=== PATIENT | female | born 1970 | race Caucasian/White ===

== ENCOUNTER 2017-01-15 11:02 | Emergency (ER) | payer OTHER ==
[2017-01-15 11:07] VITALS: TEMP 97.8; BMI 21.0
--- NOTE | 2017-01-15 11:47 | PDOC ---
History of Present Illness - General History Source: Patient, Family Exam Limitations: No Limitations - History of Present Illness Initial Comments: 01/15/17 12:25 The patient is a 46 year old female, with a significant past medical history of gastritis, who presents to the emergency department with abdominal pain, nausea and vomiting. She states that her abdominal pain is sharp ranging from mild to moderate, without radiation or modifying factors. She also states that the pain usually wakes her up every morning for a few hours and the pain resolves on her own. She notes that she has been passing gas. She also notes that she has been taking Omeprazole. She states that she has lost 7 pounds during the past month. She was last in the ED on 04/08/2017 for the same symptoms, was given Zofran, morphine, pepcid and normal saline. At the time she had a CT abdomen/pelvis which revealed a right ovarian cyst. The patient was discharged after improvement of symptoms. Since then she has followed up with a GI specialist who have done both an endoscopy and colonoscopy that was within normal limits. She notes that she has not had true relief since last year. The patient denies chest pain, shortness of breath, headache and dizziness. Denies fever, chills, nausea, vomit, diarrhea and constipation. Denies dysuria, frequency, urgency and hematuria. Allergies: None Past surgical history: Spinal Fusion Social history: Marijuana use. Former smoker. No alcohol use PCP - Dr. Duran Snyder <Shady Rudolph - Last Filed: 01/15/17 12:24> - General History Source: Patient Exam Limitations: No Limitations <Gisselle Hernandez - Last Filed: 01/15/17 14:34> - General Chief Complaint: Pain Stated Complaint: ABD PAIN, Time Seen by Provider: 01/15/17 11:25 Past History <Shady Rudolph - Last Filed: 01/15/17 12:24> - Past Medical History Kidney Stones: No Liver Disease: No Other medical history: none - Surgical History Neurologic Surgery: Yes (spine) Orthopedic Surgery: Yes (spinal fusion ) - Immunization History Immunization Up to Date: Yes - Psycho/Social/Smoking Cessation Hx Anxiety: Yes Suicidal Ideation: No Smoking History: Never smoked Have you smoked in the past 12 months: Yes Number of Cigarettes Smoked Daily: 2 Information on smoking cessation initiated: No Hx Alcohol Use: No Drug/Substance Use Hx: No Substance Use Type: None <Gisselle Hernandez - Last Filed: 01/15/17 14:34> - Past Medical History Allergies/Adverse Reactions: Allergies Allergy/AdvReac Type Severity Reaction Status Date / Time No Known Allergies Allergy Verified 01/15/17 11:04 Home Medications: Ambulatory Orders Dicyclomine HCl [Bentyl] 10 mg PO TID PRN #30 capsule 01/15/17 Famotidine [Pepcid] 20 mg PO DAILY #30 tablet 01/15/17 Review of Systems - Review of Systems Able to Perform ROS?: Yes Comments:: 01/15/17 12:25 GENERAL/CONSTITUTIONAL: No fever or chills. No weakness. HEAD, EYES, EARS, NOSE AND THROAT: No change in vision. No ear pain or discharge. No sore throat. CARDIOVASCULAR: No chest pain or shortness of breath RESPIRATORY: No cough, wheezing, or hemoptysis. GASTROINTESTINAL: +Abdominal pain, nausea, vomiting. No diarrhea or constipation. GENITOURINARY: No dysuria, frequency, or change in urination. MUSCULOSKELETAL: No joint or muscle swelling or pain. No neck or back pain. SKIN: No rash NEUROLOGIC: No headache, vertigo, loss of consciousness, or change in strength/ sensation. ENDOCRINE: No increased thirst. No abnormal weight change HEMATOLOGIC/LYMPHATIC: No anemia, easy bleeding, or history of blood clots. ALLERGIC/IMMUNOLOGIC: No hives or skin allergy. <Shady Rudolph - Last Filed: 01/15/17 12:24> *Physical Exam - Vital Signs Last Vital Signs Temp Pulse Resp BP Pulse Ox 97.8 F 69 18 149/84 100 01/15/17 11:05 01/15/17 11:05 01/15/17 11:05 01/15/17 11:05 01/15/17 11:05 - Physical Exam Comments: 01/15/17 12:25 GENERAL: Awake, alert, and fully oriented, in no acute distress HEAD: No signs of trauma, normocephalic, atraumatic EYES: PERRLA, EOMI, sclera anicteric, conjunctiva clear ENT: Auricles normal inspection, hearing grossly normal, nares patent, oropharynx clear without exudates. Moist mucosa NECK: Normal ROM, supple, no lymphadenopathy, JVD, or masses LUNGS: No distress, speaks full sentences, clear to auscultation bilaterally HEART: Regular rate and rhythm, normal S1 and S2, no murmurs, rubs or gallops, peripheral pulses normal and equal bilaterally. ABDOMEN: +Epigastric tenderness. Soft, normoactive bowel sounds. No guarding, no rebound. No masses EXTREMITIES: Normal inspection, Normal range of motion, no edema. No clubbing or cyanosis. NEUROLOGICAL: Cranial nerves II through XII grossly intact. Normal speech, normal gait, no focal sensorimotor deficits SKIN: Warm, Dry, normal turgor, no rashes or lesions noted. <Shady Rudolph - Last Filed: 01/15/17 12:24> - Vital Signs Last Vital Signs Temp Pulse Resp BP Pulse Ox 97.8 F 69 18 149/84 100 01/15/17 11:05 01/15/17 11:05 01/15/17 11:05 01/15/17 11:05 01/15/17 11:05 <Gisselle Hernandez - Last Filed: 01/15/17 14:34> ED Treatment Course - LABORATORY CBC & Chemistry Diagram: 01/15/17 11:55 01/15/17 11:55 <Gisselle Hernandez - Last Filed: 01/15/17 14:34> Medical Decision Making - Medical Decision Making 01/15/17 11:47 A portion of this note was documented by scribe services under my direction. I have reviewed the details of the note, within reason, and agree with the documentation with the following case summary and management plan written by me. Nursing documentation reviewed and incorporated into medical decision making This patient is a 46-year-old female with a history of gastritis who presents emergency department with a complaint of abdominal pain. Patient states the pain wakes her up at approximately 4 AM every morning, described as sharp/stabbing, 10:30 Patient notes that her pain actually improves over the course of the morning. She has been unable to eat due to her symptoms. He denies fevers or chills although nose intermittently that she is very hot and sweaty. No recent travel. No ill contacts. Patient's father has similar symptoms. Patient was seen by gastritis who did an endoscopy and stated was normal and that she might need to get used to the pain 01/15/17 12:01 Others' Prescriptions Patient Name: Carole Aguilar Date: 1970 Address: [facility] [address] [place] [address] Sex: Female Rx Written Rx Dispensed Drug Quantity Days Supply Prescriber Name 12/11/2016 12/17/2016 oxycodone-acetaminophen 10-325 mg tab 60 30 Abraham Hill MD 11/12/2016 11/12/2016 oxycodone-acetaminophen 10-325 mg tab 60 30 ModAbraham banks MD 10/15/2016 10/15/2016 oxycodone-acetaminophen 10-325 mg tab 60 30 ModuguAbraham MD 10/15/2016 10/15/2016 clonazepam 1 mg tablet 30 30 ModuguAbraham MD 06/18/2016 06/21/2016 oxycodone hcl 20 mg tablet 30 15 Adissi, Priscilla GENER[employer] INTERNIST AND PHYSICIAN LEADER 05/14/2016 05/18/2016 diazepam 10 mg tablet 60 30 Adissi, Priscilla GENERAL INTERNIST AND PHYSICIAN LEADER 05/14/2016 05/18/2016 oxycodone-acetaminophen 10-325 mg tab 150 25 Adissi, Priscilla GENERAL INTERNIST AND PHYSICIAN LEADER 05/14/2016 05/18/2016 oxycodone hcl 20 mg tablet 60 30 Adissi, Priscilla GENERAL INTERNIST AND PHYSICIAN LEADER 04/09/2016 04/09/2016 oxycodone hcl 20 mg tablet 60 30 Adissi, Priscilla GENERAL INTERNIST AND PHYSICIAN LEADER 04/09/2016 04/09/2016 oxycodone-acetaminophen 10-325 150 30 Adissi, Priscilla GENERAL INTERNIST AND PHYSICIAN LEADER 04/09/2016 04/09/2016 diazepam 10 mg tablet 60 30 Adissi, Priscilla GENERAL INTERNIST AND PHYSICIAN LEADER 01/25/2016 02/07/2016 oxycodone hcl 20 mg tablet 60 30 Adissi, Priscilla GENERAL INTERNIST AND PHYSICIAN LEADER 01/25/2016 01/31/2016 oxycodone-acetaminophen 10-325 150 20 Adissi, Priscilla GENERAL INTERNIST AND PHYSICIAN LEADER 01/25/2016 01/29/2016 diazepam 10 mg tablet 60 30 Adissi, Priscilla GENERAL INTERNIST AND PHYSICIAN LEADER 01/27/2016 01/27/2016 acetaminophen-cod #3 tablet 20 3 González Black 01/15/17 14:28 Laboratory Tests 01/15/17 01/15/17 01/15/17 11:55 11:55 11:55 WBC 11.4 H Hgb 14.1 Hct 42.1 Plt Count 254 Neutrophils % 65.2 Lymphocytes % 26.7 D BUN 6 L D Creatinine 0.8 Random Glucose 99 Urine Blood Negative Urine Nitrite Negative Ur Leukocyte Esterase Negative Will NOT image Pt states she would like to go home Clinical Impression: gastritis <Gisselle Hernandez - Last Filed: 01/15/17 14:34> *DC/Admit/Observation/Transfer - Attestations Scribe Attestion: 01/15/17 12:25 Documentation prepared by Shady Rudolph, acting as medical office scheduler for Gisselle Hernandez MD <Shady Rudolph - Last Filed: 01/15/17 12:24> - Discharge Dispostion Admit: No <Gisselle Hernandez - Last Filed: 01/15/17 14:34> Diagnosis at time of Disposition: Abdominal pain Qualifiers: Abdominal location: epigastric Qualified Code(s): R10.13 - Epigastric pain Gastritis Qualifiers: Gastritis type: other gastritis Chronicity: chronic Gastritis bleeding: without bleeding Qualified Code(s): K29.50 - Unspecified chronic gastritis without bleeding - Discharge Dispostion Disposition: HOME Condition at time of disposition: Improved - Prescriptions Prescriptions: Dicyclomine HCl [Bentyl] 10 mg PO TID PRN #30 capsule PRN Reason: abdominal pain Famotidine [Pepcid] 20 mg PO DAILY #30 tablet - Referrals Referrals: Duran Snyder MD [Primary Care Provider] - Lg Hall MD [Staff Physician] - - Patient Instructions Printed Discharge Instructions: DI for Gastritis, Tucker Diet, DI for Abdominal Pain-Adult Additional Instructions: Carole Thank you for coming in to the ER today Please take medications as prescribed Please be sure to follow up with your PMD on Saturday Return to the ER for any other concerns or complaints
[2017-01-15] MEDS ORDERED: ONDANSETRON 4 MG/2 ML VIAL IVPB ONE (11:50)
[2017-01-15] MEDS ORDERED: FAMOTIDINE 20 MG/50 ML IVPB 50 ML IVPB ONE ×2 (11:50→12:50)
[2017-01-15] MEDS ORDERED: SODIUM CHLORIDE 1,000 ML IV STA (11:50)
[2017-01-15] MEDS ORDERED: morphine CARPU-JECT 4 MG/1 ML DISP.SYRIN IVPUSH ONE (12:15)
[2017-01-15] MEDS ORDERED: DICYCLOMINE HCL 10 MG CAPSULE PO ONE (12:15)
[2017-01-15] MEDS ORDERED: morphine CARPU-JECT 4 MG/1 ML DISP.SYRIN ONE (12:50)
[2017-01-15] MEDS ORDERED: ONDANSETRON 4 MG/2 ML VIAL ONE (12:50)
[2017-01-15] MEDS ORDERED: DICYCLOMINE HCL 10 MG CAPSULE ONE (12:50)
[2017-01-15 14:01] LABS: BASOPHIL 0.6 % (0-2.0); EOSINOPHIL 0.4 % (0-4.5); MCH 31.4 pg (25.7-33.7); MCHC 33.4 g/dl (32.0-36.0); MEAN CELL VOLUME 93.9 fl (80-96); MEAN PLT VOLUME 10.2 fl (7.5-11.1); NEUTROPHILS 65.2 % (42.8-82.8); PLATELET COUNT 254 K/MM3 (134-434); RDW 12.8 % (11.6-15.6); WHITE BLOOD COUNT 11.4 K/mm3 (4.0-10.0)
[2017-01-15 14:10] LABS: URINE APPEARANCE CLEAR; URINE BILIRUBIN NEGATIVE (NEGATIVE); URINE BLOOD NEGATIVE (NEGATIVE); URINE COLOR COLORLESS; URINE GLUCOSE (UA) NEGATIVE (NEGATIVE); URINE KETONE NEGATIVE (NEGATIVE); URINE LEUK ESTERASE NEGATIVE (NEGATIVE); URINE NITRITE NEGATIVE (NEGATIVE); URINE PROTEIN NEGATIVE (NEGATIVE); URINE UROBILINOGEN NEGATIVE E.U./dl (0.2-1.0)
[2017-01-15 14:14] LABS: ALBUMIN 4.4 g/dl (3.4-5.0); ALK PHOS 81 U/L (45-117); AMYLASE 43 U/L (25-115); ANION GAP 9 (8-16); BILIRUBIN,TOTAL 0.4 mg/dL (0.2-1.0); CALCIUM 9.2 mg/dL (8.5-10.1); CO2 27 mmol/L (21-32); CREATININE 0.8 mg/dL (0.55-1.02); GLUCOSE,RANDOM 99 mg/dL (74-106); SGOT/AST 16 U/L (15-37); SGPT/ALT 20 U/L (12-78); TOT PROT 7.7 g/dl (6.4-8.2)
[2017-01-15 14:44] VITALS: BP 136/74; PULSE 73
== END 2017-01-15 14:44 | disposition home or self-care (01) ==
LOC: JER 11:02
PROC: 3E033GC Introduction of Other Therapeutic Substance into Peripheral Vein, Percutaneous Approach (ICD-10-PCS; principal; 2017-01-15)
PROC: 3E033NZ Introduction of Analgesics, Hypnotics, Sedatives into Peripheral Vein, Percutaneous Approach (ICD-10-PCS; 2017-01-15)
DX: K29.50 Unspecified chronic gastritis without bleeding (principal)
CPT/HCPCS: 36415; 80053; 81003; 82150; 83690; 85025; 87086; 96365; 96375; 99284-25

== ENCOUNTER 2017-02-06 03:24 | Inpatient (IN) | payer OTHER ==
[2017-02-06] MEDS ORDERED: ALBUTEROL SO4 2.5/IPRATROPIUM 0.5 INH SOL 3 ML VIAL.NEB. NEB STA ×2 (03:45→04:29)
[2017-02-06] MEDS ORDERED: methylPREDNISolone NA SUCC 125 MG/2 ML VIAL IVPB ONE (03:45)
--- NOTE | 2017-02-06 03:45 | PDOC ---
History of Present Illness - General History Source: Patient <Shady Hurtado - Last Filed: 02/06/17 05:14> - General History Source: Patient Exam Limitations: No Limitations - History of Present Illness Initial Comments: 02/06/17 03:55 The patient is a 46 year old female with no significant past medical history who presents to the ED with right-sided chest pain few hours prior to arrival. Patient reports she was in her usual state of health when she was awoken by a sudden onset of nonradiating right-sided chest pain around 1am. She described chest pain as pressure-like sensation, squeezing, and stabbing in nature that she rates a 10/10 with associated SOB. Denies diaphoresis, lightheadedness, jaw pain, shoulder pain, arm pain, leg swelling, nausea, or vomiting. She admits to smoking half pack cigarettes per day and her last cigarette was earlier yesterday morning. Patient also states she has chest pain upon deep inspiration. The patient denies fever, chills, cough, abdominal pain, and diarrhea. Allergies: NKDA Social History: Denies alcohol or drug use. Current smoker (half ppd) Past Surgical History: Spinal fusion PCP: Dr. Duran Snyder <Mandie Whalen - Last Filed: 02/06/17 05:57> - General Chief Complaint: Chest Pain Stated Complaint: CHEST PAIN Time Seen by Provider: 02/06/17 03:45 Past History - Past Medical History Kidney Stones: No Liver Disease: No Psychiatric Problems: Yes - Surgical History Neurologic Surgery: Yes (spine) Orthopedic Surgery: Yes (spinal fusion ) - Immunization History Immunization Up to Date: Yes - Psycho/Social/Smoking Cessation Hx Anxiety: Yes Suicidal Ideation: No Smoking History: Unknown if ever smoked Have you smoked in the past 12 months: Yes Number of Cigarettes Smoked Daily: 2 Information on smoking cessation initiated: No Hx Alcohol Use: No Drug/Substance Use Hx: No Substance Use Type: None <Shady Hurtado - Last Filed: 02/06/17 05:14> <Mandie Whalen - Last Filed: 02/06/17 05:57> - Past Medical History Allergies/Adverse Reactions: Allergies Allergy/AdvReac Type Severity Reaction Status Date / Time No Known Allergies Allergy Verified 02/06/17 03:33 Home Medications: Ambulatory Orders Baclofen 10 mg PO BID 02/06/17 Clonazepam [Klonopin] 1 mg PO DAILY PRN 02/06/17 Oxycodone HCl/Acetaminophen [Percocet 5-325 mg Tablet] 1 tab PO Q4H PRN Sertraline HCl [Zoloft] 25 mg PO DAILY 02/06/17 Review of Systems - Review of Systems Able to Perform ROS?: Yes Comments:: 02/06/17 03:55 CONSTITUTIONAL: Absent: fever, chills, diaphoresis, generalized weakness, malaise, loss of appetite HEENT: Absent: rhinorrhea, nasal congestion, throat pain, throat swelling, difficulty swallowing, mouth swelling, ear pain, eye pain, visual Changes CARDIOVASCULAR: +right-sided chest pain Absent: syncope, palpitations, irregular heart rate, lightheadedness, peripheral edema RESPIRATORY: +SOB Absent: cough, dyspnea with exertion, orthopnea, wheezing, stridor, hemoptysis GASTROINTESTINAL: Absent: abdominal pain, abdominal distension, nausea, vomiting, diarrhea, constipation, melena, hematochezia GENITOURINARY: Absent: dysuria, frequency, urgency, hesitancy, hematuria, flank pain, genital pain MUSCULOSKELETAL: Absent: myalgia, arthralgia, joint swelling SKIN: Absent: rash, itching, pallor NEUROLOGIC: Absent: headache, focal weakness or paresthesias, dizziness, unsteady gait, seizure, mental status changes, bladder or bowel incontinence PSYCHIATRIC: Absent: anxiety, depression, suicidal or homicidal ideation, hallucinations. <Mandie Whalen - Last Filed: 02/06/17 05:57> *Physical Exam - Vital Signs Last Vital Signs Temp Pulse Resp BP Pulse Ox 98.0 F 72 14 107/61 100 02/06/17 03:33 02/06/17 03:33 02/06/17 03:33 02/06/17 03:33 02/06/17 03:33 <Shady Hurtado - Last Filed: 02/06/17 05:14> - Vital Signs Last Vital Signs Temp Pulse Resp BP Pulse Ox 98.0 F 72 14 107/61 100 02/06/17 03:33 02/06/17 03:33 02/06/17 03:33 02/06/17 03:33 02/06/17 03:33 - Physical Exam Comments: 02/06/17 03:55 GENERAL: Well developed, well nourished. Awake and alert. No acute distress. HEENT: Normocephalic, atraumatic. PERRLA, EOMI. No conjunctival pallor. Sclera are non- icteric. Moist mucous membranes. Oropharynx is clear. NECK: Supple. Full ROM. No JVD. Carotid pulses 2+ and symmetric, without bruits. No thyromegaly. No lymphadenopathy. CARDIOVASCULAR: Regular rate and rhythm. No murmurs, rubs, or gallops. Distal pulses are 2+ and symmetric. PULMONARY: Mild respiratory distress. Decreased breath sounds. No conversational dyspnea. Scattered wheezing predominantly on right side. No supraclavicular retraction. No rales or rhonchi. ABDOMINAL: Soft. Non-tender. Non-distended. No rebound or guarding. No organomegaly. Normoactive bowel sounds. MUSCULOSKELETAL Normal range of motion at all joints. No bony deformities or tenderness. No CVA tenderness. EXTREMITIES: No cyanosis. No clubbing. No edema. No calf tenderness. SKIN: Warm and dry. Normal capillary refill. No rashes. No jaundice. NEUROLOGICAL: Alert, awake, appropriate. Cranial nerves 2-12 intact. No deficits to light touch and temperature in face, upper extremities and lower extremities. No motor deficits in the in face, upper extremities and lower extremities. Normoreflexic in the upper and lower extremities. Normal speech. PSYCHIATRIC: Cooperative. Good eye contact. Appropriate mood and affect. <Mandie Whalen - Last Filed: 02/06/17 05:57> Heart Score/ECG Review - ECG Impressions Comment:: 02/06/17 03:55 Sinus bradycardia @56bpm Possible left atrial enlargement Rightward axis Anterior infarct, age undetermined Abnormal ECG <Mandie Whalen - Last Filed: 02/06/17 05:57> ED Treatment Course - LABORATORY CBC & Chemistry Diagram: 02/06/17 03:45 02/06/17 03:45 <Shady Hurtado - Last Filed: 02/06/17 05:14> - LABORATORY CBC & Chemistry Diagram: 02/06/17 03:45 02/06/17 03:45 - RADIOLOGY Radiograph Interpretation: 02/06/17 03:[address] Hurtado's impression: Increased markings <Mandie Whalen - Last Filed: 02/06/17 05:57> Medical Decision Making - Medical Decision Making 02/06/17 05:14 Dr. Hurtado: The scribe's documentation has been prepared under my direction and personally reviewed by me in its entirery. I confirm that the note above accurately reflects all work, treatment, procedures, and medical decision making performed by me. Pt feels slightly better, however still having slight pain. Pt probably having new onset COPD, however pt has never been evaluated by pulmonology. Will admit to med surg. <Shady Hurtado - Last Filed: 02/06/17 05:14> - Medical Decision Making 02/06/17 05:[address] Duran Snyder (via answering service) at 5:37 Awaiting call back 02/06/17 05:56 Second call placed to Dr. Snyder (via answering service) at 5:56 and patient's case was discussed. <Mandie Whalen - Last Filed: 02/06/17 05:57> *DC/Admit/Observation/Transfer - Discharge Dispostion Admit: Yes <Shady Hurtado - Last Filed: 02/06/17 05:14> - Attestations Scribe Attestion: 02/06/17 03:56 Documentation prepared by Mandie Whalen, acting as medical scientist for Shady Hurtado MD <Mandie Whalen - Last Filed: 02/06/17 05:57> Diagnosis at time of Disposition: COPD with acute exacerbation Dyspnea Qualifiers: Dyspnea type: shortness of breath Qualified Code(s): R06.02 - Shortness of breath - Referrals Referrals: Duran Snyder MD [Primary Care Provider] -
[2017-02-06] MEDS ORDERED: ASPIRIN 81 MG CHEWABLE TABLETS PO ONE (03:46)
[2017-02-06 03:56] LABS: BASOPHIL 0.7 % (0-2.0); EOSINOPHIL 2.9 % (0-4.5); MCH 31.9 pg (25.7-33.7); MCHC 34.1 g/dl (32.0-36.0); MEAN CELL VOLUME 93.3 fl (80-96); MEAN PLT VOLUME 9.7 fl (7.5-11.1); NEUTROPHILS 46.9 % (42.8-82.8); PLATELET COUNT 210 K/MM3 (134-434); RDW 13.1 % (11.6-15.6); WHITE BLOOD COUNT 8.1 K/mm3 (4.0-10.0)
[2017-02-06] MEDS ORDERED: ASPIRIN 81 MG CHEWABLE TABLETS ONE (04:16)
[2017-02-06 04:20] LABS: ALBUMIN 3.7 g/dl (3.4-5.0); ANION GAP 9 (8-16); BILIRUBIN,TOTAL 0.3 mg/dL (0.2-1.0); CALCIUM 8.4 mg/dL (8.5-10.1); CO2 26 mmol/L (21-32); CREATININE 0.9 mg/dL (0.55-1.02); GLUCOSE,RANDOM 96 mg/dL (74-106); SGOT/AST 17 U/L (15-37); SGPT/ALT 19 U/L (12-78); TOT PROT 6.8 g/dl (6.4-8.2)
[2017-02-06 04:22] LABS: ALK PHOS 74 U/L (45-117); TROPONIN I < 0.02 ng/ml (0.00-0.05)
[2017-02-06] MEDS ORDERED: MAGNESIUM SULF 50% (8.12 MEQ/2 ML-1 GM VIAL) IVPB ONE (04:26)
[2017-02-06 04:27] LABS: INR 1.01 (0.82-1.09)
[2017-02-06] MEDS ORDERED: MAGNESIUM SULF 50% (8.12 MEQ/2 ML-1 GM VIAL) ONE (04:29)
[2017-02-06 04:30] LABS: D-DIMER < 200 ng/ml (<200-235)
[2017-02-06] MEDS ORDERED: ONDANSETRON *ODT* 4 MG TABLET SL PRN (08:03)
[2017-02-06] MEDS ORDERED: ACETAMINOPHEN 325 MG TABLET (FP) PO PRN (08:03)
[2017-02-06] MEDS ORDERED: clonazePAM 0.5 MG TABLET PO PRN (08:06)
[2017-02-06 08:54] LABS: CHOLESTEROL 170 mg/dL (50-200); LDL CHOLESTEROL (ONLY SJRH) 105 mg/dL (5-100)
[2017-02-06 09:29] VITALS: BMI 22.2
[2017-02-06] MEDS: SERTRALINE HCL 25 MG TABLET (FP) PO SCH (09:38)
[2017-02-06] MEDS: oxyCODONE HCL 5 MG TABLET PO PRN ×2 (09:38→17:04)
[2017-02-06] MEDS: BACLOFEN 10 MG TABLET (FP) PO SCH ×2 (09:38→21:33)
[2017-02-06] MEDS: ASPIRIN COATED 81 MG TABLET.EC PO SCH (09:38)
--- NOTE | 2017-02-06 09:49 | CONSULT ---
Consultation: REQUESTING PROVIDER: Dr. Duran Hoff CONSULT REQUEST: We have been asked to medically evaluate this patient for COPD HISTORY OF PRESENT ILLNESS: 46 yo F with significant PMHx of tobacco use and spinal disc herniation (s/p fusion and corrective surgery) presented to ED 02/06/17 complaining of CP. She states that at 1am she noticed a sharp pain on her right chest that radiated to her back. She describes 10/10 radiating intermittent right sided CP made worse by deep inspiration and no alleviating factors. Pain was accompanied by SOB and chills but no fevers. Denied diaphoresis, relation to activity, nausea or vomiting. Earlier that day she was eating cereal and chocked and coughed uncontrollably for a few minutes.Of note her daughter was seen in ED 2 weeks ago and diagnosed with PNA and discharged with antibiotics. Also other members of her family have been sick with cold like symptoms.She did receive flu vaccine this year in 2015. In ER she received Solumedrol and Duoneb treatments with improvement of SOB but pain persist. She mentions that as a child she had bronchitis and that 3/6 children at home have asthma treated with inhalers. At this time denies SOB, MARES, diaphoresis, fever or chills. Allergies: NKDA Social History: Denies alcohol or drug use. 15 pack year history. Currently trying to quit smokes 1-2 cigs dialy. Past Surgical History: Spinal fusion(2013), Corrective spinal surgery with pinnig(2014), hemorrhoid, tubal ligation, tonsillectomy Family history: Mother - ovarian Ca. Father- Heart problems? Children- 3/6 asthma REVIEW OF SYSTEMS: CONSTITUTIONAL: Absent: fever, chills, diaphoresis, generalized weakness, malaise, loss of appetite, weight change HEENT: Absent: rhinorrhea, nasal congestion, throat pain, throat swelling, difficulty swallowing, mouth swelling, ear pain, eye pain, visual changes CARDIOVASCULAR:(+) chest pain Absent: , syncope, palpitations, irregular heart rate, lightheadedness, peripheral edema RESPIRATORY: Absent: cough, shortness of breath, dyspnea with exertion, orthopnea, wheezing, stridor, hemoptysis GASTROINTESTINAL: Absent: abdominal pain, abdominal distension, nausea, vomiting, diarrhea, constipation, melena, hematochezia GENITOURINARY: Absent: dysuria, frequency, urgency, hesitancy, hematuria, flank pain, genital pain MUSCULOSKELETAL: Absent: myalgia, arthralgia, joint swelling, back pain, neck pain SKIN: Absent: rash, itching, pallor HEMATOLOGIC/IMMUNOLOGIC: Absent: easy bleeding, easy bruising, lymphadenopathy, frequent infections ENDOCRINE: Absent: unexplained weight gain, unexplained weight loss, heat intolerance, cold intolerance NEUROLOGIC: (+) paresthesias of R side Absent: headache, focal weakness or, dizziness, unsteady gait, seizure, mental status changes, bladder or bowel incontinence PSYCHIATRIC: (+)anxiety, depression Absent: , suicidal or homicidal ideation, hallucinations. PHYSICAL EXAMINATION GENERAL: AAO x3, NAD HEAD:NC/AT EYES: PERRLA, EOMI, sclera anicteric, conjunctiva clear. No lid lag. EARS, NOSE, THROAT: Ears normal, nares patent, oropharynx clear without exudates. Moist mucous membranes. NECK: Decreased range of motion, supple without lymphadenopathy, JVD, or masses. thyromegally. 3cm Cervical incision fr LUNGS: Breath sounds equal, clear to auscultation bilaterally. No wheezes, and no crackles. No accessory muscle use. HEART: Regular rate and rhythm, normal S1 and S2 without murmur, rub or gallop. ABDOMEN: Soft, NT/ND, normoactive bowel sounds, no guarding, no rebound, no masses. No hepatomegaly or splenomegaly. MUSCULOSKELETAL:Point tenderness on palpation of right posterior intercostal space. No bony deformities .No CVA tenderness. UPPER EXTREMITIES: 2+ pulses, warm, well-perfused. No cyanosis. No clubbing. No peripheral edema. LOWER EXTREMITIES: 2+ pulses, warm, well-perfused. No calf tenderness. No peripheral edema. NEUROLOGICAL: Cranial nerves II-XII grossly intact. Normal speech. gait not observed. PSYCHIATRIC: Cooperative. Good eye contact. Appropriate mood and affect. SKIN: Warm, dry, normal turgor, no rashes or lesions noted. Active Medications Generic Name Dose Route Start Last Admin Trade Name Freq PRN Reason Stop Dose Admin Acetaminophen 650 mg 02/06/17 08:03 Tylenol - PO Q6H PRN FEVER OR PAIN Albuterol/Ipratropium 1 amp 02/06/17 08:03 Duoneb - NEB Q6H PRN SHORTNESS OF BREATH Aspirin 81 mg 02/06/17 10:00 02/06/17 09:38 Ecotrin - PO 81 mg DAILY ALANIS Administration Baclofen 10 mg 02/06/17 10:00 02/06/17 09:38 Lioresal - PO 10 mg BID ALANIS Administration Clonazepam 1 mg 02/06/17 08:06 Klonopin - PO BID PRN ANXIETY Methylprednisolone Sodium Succinate 40 mg 02/06/17 10:00 02/06/17 09:38 Solu-Medrol - IVPB 40 mg Q8H-IV ALANIS Administration Ondansetron HCl 4 mg 02/06/17 08:03 Zofran Odt - SL Q6H PRN NAUSEA AND/OR VOMITING Oxycodone HCl 5 mg 02/06/17 08:03 02/06/17 09:38 Roxicodone - PO 5 mg Q6H PRN Administration PAIN Sertraline HCl 25 mg 02/06/17 10:00 02/06/17 09:38 Zoloft - PO 25 mg DAILY ALANIS Administration EKG: NSR rate of 56, right axis deviation Imaging: * CXR- Normal chest xray, no acute pathology. ASSESSMENT/PLAN: 46 yo F with significant PMHx of tobacco use and spinal disc herniation (s/p fusion and corrective surgery) admitted to for Acute exacerbation of COPD. Dispo: We will continue to follow the patient. Thank you for this consultative opportunity. Problem List - Problems (1) COPD with acute exacerbation Assessment/Plan: * Pain more likely acute intercostal muscle strain from uncontrolled coughing earlier that day ,given its reproducibility on palpation. * May consider trial of NSAIDS * NO fever or Leukocytosis and SpO2 99% on RA since admission * CXR was normal with no acute pathology * COPD less likely * smoking cessation counseled * can discontinue Solumedrol 40mg IV Q8H and Duonebs QID * Wells -2 and D-Dimer WNL= Low pretest prob. of DVT/PE * Consider early discharge. Code(s): J44.1 - CHRONIC OBSTRUCTIVE PULMONARY DISEASE W (ACUTE) EXACERBATION Visit type - Emergency Visit Emergency Visit: Yes ED Registration Date: 02/06/17 Care time: The patient presented to the Emergency Department on the above date and was hospitalized for further evaluation of their emergent condition. - New Patient This patient is new to me today: Yes Date on this admission: 02/06/17 - Critical Care Critical Care patient: No
[2017-02-06] MEDS ORDERED: methylPREDNISolone NA SUCC 40 MG/1 ML VIAL IVPB SCH (10:00)
--- NOTE | 2017-02-06 11:51 | HP ---
Admitting History and Physical - Primary Care Physician PCP: Duran Snyder - Admission Chief Complaint: CHEST PAIN/DYSPNEA History of Present Illness: he patient is a 46 year old female with no significant past medical history who presents to the ED with right-sided chest pain few hours prior to arrival. Patient reports she was in her usual state of health when she was awoken by a sudden onset of nonradiating right-sided chest pain around 1am. She described chest pain as pressure-like sensation, squeezing, and stabbing in nature that she rates a 10/10 with associated SOB. Denies diaphoresis, lightheadedness, jaw pain, shoulder pain, arm pain, leg swelling, nausea, or vomiting. She admits to smoking half pack cigarettes per day and her last cigarette was earlier yesterday morning. Patient also states she has chest pain upon deep inspiration. The patient denies fever, chills, cough, abdominal pain, and diarrhea. Limitations to Obtaining History: No Limitations - Past Medical History Pulmonary: Yes: Asthma, COPD ...LMP: 01/16/17 - Smoking History Smoking history: Current every day smoker Have you smoked in the past 12 months: Yes Aproximately how many cigarettes per day: 2 - Alcohol/Substance Use Hx Alcohol Use: No Home Medications - Allergies Allergies/Adverse Reactions: Allergies Allergy/AdvReac Type Severity Reaction Status Date / Time No Known Allergies Allergy Verified 02/06/17 03:33 - Home Medications Home Medications: Ambulatory Orders Baclofen 10 mg PO BID 02/06/17 Clonazepam [Klonopin] 1 mg PO DAILY PRN 02/06/17 Oxycodone HCl/Acetaminophen [Percocet 5-325 mg Tablet] 1 tab PO Q4H PRN Sertraline HCl [Zoloft] 25 mg PO DAILY 02/06/17 Review of Systems - Review of Systems Constitutional: reports: Weakness Eyes: reports: No Symptoms HENT: reports: No Symptoms Neck: reports: No Symptoms Cardiovascular: reports: Chest Pain Respiratory: reports: Cough, SOB, SOB on Exertion Gastrointestinal: reports: No Symptoms Genitourinary: reports: No Symptoms Breasts: reports: No Symptoms Reported Musculoskeletal: reports: No Symptoms Integumentary: reports: No Symptoms Neurological: reports: No Symptoms Endocrine: reports: No Symptoms Hematology/Lymphatic: reports: No Symptoms Psychiatric: reports: No Symptoms Physical Examination Vital Signs: Vital Signs Temperature 98.0 F 02/06/17 03:33 Pulse Rate 71 02/06/17 05:49 Respiratory Rate 16 02/06/17 05:49 Blood Pressure 101/54 02/06/17 05:49 O2 Sat by Pulse Oximetry (%) 99 02/06/17 05:50 Findings/Remarks: AWAKE ALERT C/O SHORTNESS OF BREATH Constitutional: Yes: Moderate Distress Eyes: Yes: WNL HENT: Yes: WNL Neck: Yes: WNL Cardiovascular: Yes: WNL Respiratory: Yes: On Nasal O2, Poor Air Entry, SOB Gastrointestinal: Yes: WNL Renal/: Yes: WNL Musculoskeletal: Yes: WNL Extremities: Yes: WNL Edema: No Peripheral Pulses WNL: Yes Integumentary: Yes: WNL Wound/Incision: Yes: Clean/Dry Neurological: Yes: WNL ...Motor Strength: WNL Psychiatric: Yes: WNL Problem List - Problems (1) COPD with acute exacerbation Code(s): J44.1 - CHRONIC OBSTRUCTIVE PULMONARY DISEASE W (ACUTE) EXACERBATION (2) Dyspnea Code(s): R06.00 - DYSPNEA, UNSPECIFIED Qualifiers: Dyspnea type: shortness of breath Qualified Code(s): R06.02 - Shortness of breath (3) Smoking Assessment/Plan: CURRENT 1 PK A DAY CIGARETTE SMOKER Code(s): F17.200 - NICOTINE DEPENDENCE, UNSPECIFIED, UNCOMPLICATED Assessment/Plan PULM EVAL ECHO CARDIO EVAL SMOKING CESSATION NICOTINE PATCH STEROIDS IV NEBS
--- NOTE | 2017-02-06 13:30 | EKG ---
Test Reason : Blood Pressure : / mmHG Vent. Rate : 056 BPM Atrial Rate : 056 BPM P-R Int : 134 ms QRS Dur : 086 ms QT Int : 384 ms P-R-T Axes : 076 092 062 degrees QTc Int : 370 ms SINUS BRADYCARDIA POSSIBLE LEFT ATRIAL ENLARGEMENT RIGHTWARD AXIS ANTERIOR INFARCT , AGE UNDETERMINED ABNORMAL ECG NO PREVIOUS ECGS AVAILABLE Confirmed by NAGI LOCKE MD ([id number]) on 02/06/2017 1:30:09 PM Referred By: Confirmed By:NAGI LOCKE MD
[2017-02-06] MEDS: NICOTINE 21 MG/24 HOURS TOPICAL PATCH TD SCH (13:35)
--- NOTE | 2017-02-06 13:55 | CON.CARD ---
Addendum entered and electronically signed by Jaspal Martell MD 02/06/17 14:05: Echocardiogram final report pending but normal LV systolic function and no significant valvular disease per my review of study. Original Note: Consult Consult Specialty:: Cardiology Referred by:: Dr. Snyder Reason for Consultation:: Chest pain - History of Present Illness Chief Complaint: Chest pain, dyspnea History of Present Illness: 46 yo female smoker with no significant past medical history who was admitted with right sided chest pain for several hour which woke her from sleep at ~ 1 AM. She reported the chest discomfort as non-radiating and both pressure-loke and stabbing sensation with associated dyspnea. Currently without symptoms. ECG without ischemic ECG changes and troponin was negative. - History Source History Provided By: Patient Limitations to Obtaining History: No Limitations - Past Medical History Pulmonary: Yes: Asthma, COPD ...LMP: 01/16/17 - Past Surgical History Past Surgical History: Yes: None - Alcohol/Substance Use Hx Alcohol Use: No - Smoking History Smoking history: Current every day smoker Have you smoked in the past 12 months: Yes Aproximately how many cigarettes per day: 2 Home Medications - Allergies Allergies/Adverse Reactions: Allergies Allergy/AdvReac Type Severity Reaction Status Date / Time No Known Allergies Allergy Verified 02/06/17 03:33 - Home Medications Home Medications: Ambulatory Orders Baclofen 10 mg PO BID 02/06/17 Clonazepam [Klonopin] 1 mg PO DAILY PRN 02/06/17 Oxycodone HCl/Acetaminophen [Percocet 5-325 mg Tablet] 1 tab PO Q4H PRN Sertraline HCl [Zoloft] 25 mg PO DAILY 02/06/17 Family Disease History - Family Disease History Family History: Denies (premature CAD or SCD) Review of Systems - Review of Systems Constitutional: reports: No Symptoms Eyes: reports: No Symptoms HENT: reports: No Symptoms Neck: reports: No Symptoms Cardiovascular: reports: Chest Pain, Shortness of Breath Respiratory: reports: SOB Gastrointestinal: reports: No Symptoms Genitourinary: reports: No Symptoms Musculoskeletal: reports: No Symptoms Neurological: reports: No Symptoms Endocrine: reports: No Symptoms Hematology/Lymphatic: reports: No Symptoms Psychiatric: reports: No Symptoms Vital Signs: Vital Signs Temperature 97.7 F 02/06/17 13:32 Pulse Rate 78 02/06/17 13:32 Respiratory Rate 20 02/06/17 13:32 Blood Pressure 101/54 02/06/17 05:49 O2 Sat by Pulse Oximetry (%) 99 02/06/17 05:50 Constitutional: Yes: Well Nourished, No Distress Eyes: Yes: Conjunctiva Clear, EOM Intact HENT: Yes: Atraumatic, Normocephalic Respiratory: Yes: CTA Bilaterally Gastrointestinal: Yes: Normal Bowel Sounds, Soft. No: Distention, Tenderness Cardiovascular: Yes: Regular Rate and Rhythm JVD: No Carotid Bruit: No PMI: Non-Displaced Heart Sounds: Yes: S1, S2 Murmur: No: Systolic Murmur Musculoskeletal: Yes: WNL Extremities: Yes: WNL Edema: No Peripheral Pulses WNL: No Neurological: Yes: Alert, Oriented, Cran Nerves II-XII Intact ...Motor Strength: WNL Psychiatric: Yes: WNL - Other Data Labs, Other Data: INR, PTT INR 1.01 (0.82-1.09) 02/06/17 03:45 02/06/17 ECG: Sinus bradycardia, possible LAE, RSR' pattern in V1, poor R wave progression Echo: Image Reviewed Imaging - Results Chest X-ray: Report Reviewed (02/06/17: No acute pulmonary process), Image Reviewed Assessment/Plan 46 yo female smoker who presented with right sided chest pain for several hour which woke her from sleep at ~ 1 AM. Currently without symptoms. ECG without ischemic ECG changes and troponin was negative. Low suspicion for ACS. However, patient would benefit from outpatient stress test for ischemic evaluation/risk stratification. RECS: Patient may be discharged from cardiac standpoint with outpatient cardiac stress test (stress echo versus stress nuclear). Patient to follow-up with cardiology as outpatient as per Dr. Snyder. Please call with questions. Will see prn.
--- NOTE | 2017-02-06 15:01 | PN ---
Teaching Attending Note Name of Resident: Emil Mosley ATTENDING PHYSICIAN STATEMENT I saw and evaluated the patient. I reviewed the resident's note and discussed the case with the resident. I agree with the resident's findings and plan as documented. SUBJECTIVE:RIGHT LATERAL CHEST PAIN RADIATING TO BACK OBJECTIVE:PAIN IS REPRODUCED UPON PALPATION/DEEP INSPIRATION ASSESSMENT AND PLAN: PE RULED OUT BY NL D-DIMER/NORMAL CXR NO EVIDENCE TO SUPPORT A/E COPD, WOULD FAVOR INTERCOSTAL MUSCLE STRAIN FROM EARLIER ACUTE PROLONGED PAROXYSMS OF COUGH. HAVE DISCONTINUED STEROIDS/AGREE WITH BRONCHODILATORS PRN/CONSIDER TRIAL OF NSAIDS AND FAVOR EARLY DISCHARGE. Juancarlos GROVER MD
[2017-02-06] MEDS: ALBUTEROL SO4 2.5/IPRATROPIUM 0.5 INH SOL 3 ML VIAL.NEB. NEB PRN (22:23)
[2017-02-07] MEDS: ALBUTEROL SO4 2.5/IPRATROPIUM 0.5 INH SOL 3 ML VIAL.NEB. NEB PRN (08:15)
[2017-02-07] MEDS: BACLOFEN 10 MG TABLET (FP) PO SCH (09:44)
[2017-02-07] MEDS: ASPIRIN COATED 81 MG TABLET.EC PO SCH (09:44)
[2017-02-07] MEDS: oxyCODONE HCL 5 MG TABLET PO PRN (09:44)
[2017-02-07] MEDS: SERTRALINE HCL 25 MG TABLET (FP) PO SCH (09:44)
--- NOTE | 2017-02-07 10:09 | DS ---
Physical Examination Vital Signs: Vital Signs Temperature 98.5 F 02/07/17 05:52 Pulse Rate 73 02/07/17 05:52 Respiratory Rate 20 02/07/17 05:52 Blood Pressure 152/66 02/07/17 05:52 O2 Sat by Pulse Oximetry (%) 99 02/06/17 21:00 Findings/Remarks: AWAKE ALERT FEELING BETTER Constitutional: Yes: No Distress Eyes: Yes: WNL HENT: Yes: WNL Neck: Yes: WNL Cardiovascular: Yes: WNL Respiratory: Yes: CTA Bilaterally, Other Gastrointestinal: Yes: WNL Renal/: Yes: WNL Musculoskeletal: Yes: WNL Extremities: Yes: WNL Edema: No Peripheral Pulses WNL: Yes Integumentary: Yes: WNL Wound/Incision: Yes: Clean/Dry Neurological: Yes: WNL ...Motor Strength: WNL Psychiatric: Yes: WNL Discharge Summary Reason For Visit: COPD Current Active Problems COPD with acute exacerbation (Acute) Dyspnea (Acute) Smoking (Acute) Procedures: Principal: ECHO Other Procedures: LABS/XRAYS Hospital Course: ADMITTED DYSPNEA ACUTE RESP DISTRESS, CARDIO AND PULM WORKUP NO ACUTE CHANGES, ACUTE EXACERBATION OF COPD, SMOKING CESSATION, F/U OUT PATIENT Condition: Improved - Instructions Diet, Activity, Other Instructions: REG, SMOKING CESSATION SEE DR SNYDER [phone] AT [address] IN 1 WEEK Referrals: Duran Snyder MD [Primary Care Provider] - Disposition: HOME - Home Medications Comprehensive Discharge Medication List: Ambulatory Orders Baclofen 10 mg PO BID 02/06/17 Clonazepam [Klonopin] 1 mg PO DAILY PRN 02/06/17 Oxycodone HCl/Acetaminophen [Percocet 5-325 mg Tablet] 1 tab PO Q4H PRN Sertraline HCl [Zoloft] 25 mg PO DAILY 02/06/17 DR SNYDER [phone]
[2017-02-07] MEDS: NICOTINE 21 MG/24 HOURS TOPICAL PATCH TD SCH (10:34)
[2017-02-07 10:44] VITALS: BP 102/60; PULSE 76; TEMP 97.9
== END 2017-02-07 12:15 | disposition home or self-care (01) | DRG 140 ==
LOC: JER 03:24 → J6S 05:13 → OBSVTOIN 08:00
PROVIDERS: ADMIT Family Medicine; ATTEND Family Medicine
DX: J44.1 Chronic obstructive pulmonary disease with (acute) exacerbation (principal); F17.210 Nicotine dependence, cigarettes, uncomplicated
CPT/HCPCS: 36415; 71010-TC; 80053; 80061; 82550; 83036; 83721; 84484; 84703; 85025; 85379; 85610; 93005; 93010; 93306-TC; 94640; 99284-25; G0378; J0475

== ENCOUNTER → 2017-05-11 | Emergency (ER) | payer OTHER ==
[~2017-05-11] MED LIST: KETOROLAC TROMETHAMINE 60 MG/2 ML VIAL IM ONE; KETOROLAC TROMETHAMINE 60 MG/2 ML VIAL ONE
[2017-05-11 03:44] VITALS: BMI 21.3
--- NOTE | 2017-05-11 04:06 | PDOC ---
History of Present Illness - General Stated Complaint: RIGHT KNEE PAIN Time Seen by Provider: 05/11/17 03:38 - History of Present Illness Initial Comments: 05/11/17 04:00 CHIEF COMPLAINT: Knee pain HISTORY OF PRESENT ILLNESS: 46 year old female with hx of anterior/posterior spinal fusion presents to the ED with pain to R knee x 8 hours. Patient states she fell out of her bed this evening and hit her knee. Patient reports that she did hit her head but did not lose consciousness and that "it doesn't really hurt." PAST MEDICAL HISTORY: as per HPI FAMILY HISTORY: Denies SOCIAL HISTORY: Denies tobacco, alcohol, illicit drug use. SURGICAL HISTORY: as per HPI ALLERGIES: No known drug allergies REVIEW OF SYSTEMS General/Constitutional: Denies fever or chills. Denies weakness, weight change. HEENT: Denies change in vision. Denies ear pain or discharge. Denies sore throat. Cardiovascular: Denies chest pain or shortness of breath. Respiratory: Denies cough, wheezing, or hemoptysis. Gastrointestinal: Denies nausea, vomiting, diarrhea or constipation. Denies rectal bleeding. Genitourinary: Denies dysuria, frequency, or change in urination. Musculoskeletal: R knee pain. Denies joint or muscle swelling or pain. Denies neck or back pain. Skin and breasts: Denies rash or easy bruising. Neurologic: Denies headache, vertigo, loss of consciousness, or loss of sensation. PHYSICAL EXAM General Appearance: Well-appearing, appropriately dressed. No apparent distress. HEENT: EOMI, PERRLA. Respiratory/Chest: Lungs CTAB. Cardiovascular: RRR. S1, S2. Musculoskeletal/Extremities: Tenderness to medial R knee, limited ROM secondary to pain. Normal inspection. FROM of all extremities, normal capillary refill. Pelvis Stable. No CVA tenderness. No tenderness to extremities, pedal edema, swelling, erythema or deformity. Integumentary: Appropriate color, dry, warm. 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 Fully oriented, alert. Appropriate mood/affect. Motor strength 5/5. No appreciable EOM palsy, facial droop or sensory deficit. Past History - Past Medical History Allergies/Adverse Reactions: Allergies Allergy/AdvReac Type Severity Reaction Status Date / Time No Known Allergies Allergy Verified 02/06/17 03:33 Home Medications: Ambulatory Orders Clonazepam [Klonopin] 1 mg PO DAILY PRN 02/06/17 Acetaminophen [Tylenol .Regular Strength -] 650 mg PO Q6H PRN #0 tablet Albuterol 2.5/Ipratropium 0.5 [Duoneb -] 1 amp NEB Q6H PRN #1 box 02/07/17 Sertraline HCl [Zoloft -] 25 mg PO DAILY tablet 02/07/17 Diclofenac Sodium [Voltaren -] 75 mg PO BID #14 tablet. 05/11/17 Anemia: No Asthma: No Cancer: No Cardiac Disorders: No CVA: No COPD: Yes CHF: No Dementia: No Diabetes: No GI Disorders: (Gastritis) Disorders: No HTN: No Hypercholesterolemia: No Kidney Stones: No Liver Disease: No Psychiatric Problems: Yes Seizures: No Thyroid Disease: No - Surgical History Neurologic Surgery: Yes (spine) Orthopedic Surgery: Yes (spinal fusion ) - Immunization History Immunization Up to Date: Yes - Psycho/Social/Smoking Cessation Hx Anxiety: Yes Suicidal Ideation: No Smoking History: Current every day smoker Have you smoked in the past 12 months: Yes Number of Cigarettes Smoked Daily: 2 Information on smoking cessation initiated: No Hx Alcohol Use: No Drug/Substance Use Hx: No Substance Use Type: None *Physical Exam - Vital Signs Last Vital Signs Temp Pulse Resp BP Pulse Ox 98.6 F 70 18 94/66 98 05/11/17 03:37 05/11/17 03:37 05/11/17 03:37 05/11/17 03:37 05/11/17 03:37 ED Treatment Course - RADIOLOGY Radiology Studies Ordered: Category Date Time Status KNEE 3 POS-RIGHT [RAD] Stat Radiology 05/11/17 03:57 Ordered Medical Decision Making - Medical Decision Making 05/11/17 04:06 46 year old female with hx of anterior/posterior spinal fusion presents to the ED with pain to R knee x 8 hours. -R knee x-ray -Toradol 60 mg IM 05/11/17 04:33 x-ray wet read negative for fracture dislocation. -Emanuel bandage -Crutches Advised patient to take medications as prescribed and follow-up with orthopedics if pain persists for more than 3-5 days. Advised patient to apply RICE therapy and of signs and symptoms for return to ER. Patient verbalized understanding and agrees to plan. *DC/Admit/Observation/Transfer Diagnosis at time of Disposition: Acute knee pain Qualifiers: Laterality: right Qualified Code(s): M25.561 - Pain in right knee - Discharge Dispostion Disposition: HOME Condition at time of disposition: Stable Admit: No - Prescriptions Prescriptions: Diclofenac Sodium [Voltaren -] 75 mg PO BID #14 tablet.dr - Referrals Referrals: Duran Snyder MD [Primary Care Provider] - Roddy Wood MD [Staff Physician] - - Patient Instructions Printed Discharge Instructions: DI for Knee Pain, How To Perform RICE (Rest, Ice, Compress, Elevate) Additional Instructions: Please take medication as prescribed. Follow-up with orthopedics if symptoms persist past 3-5 days. You may need an MRI for further evaluation of your knee pain. If you experience loss of sensation to your leg, difficulty speaking or swallowing, blurred vision, dizziness, or any new or worsening symptoms, please return to the ER.
[2017-05-11 05:20] VITALS: BP 84/70; PULSE 76; TEMP 97.9
== END | disposition home or self-care (01) ==
LOC: JER 03:29
PROC: 3E0233Z Introduction of Anti-inflammatory into Muscle, Percutaneous Approach (ICD-10-PCS; principal; 2017-05-11)
DX: M25.561 Pain in right knee (principal); S09.8XXA Other specified injuries of head, initial encounter; W06.XXXA Fall from bed, initial encounter; Y93.89 Activity, other specified; Y92.032 Bedroom in apartment as the place of occurrence of the external cause; J44.9 Chronic obstructive pulmonary disease, unspecified
CPT/HCPCS: 73562-TC-RT; 96372; 99283-25

== ENCOUNTER 2018-09-25 17:29 | Emergency (ER) | payer OTHER ==
[2018-09-25 17:54] VITALS: BP 108/66; PULSE 80; TEMP 98.6; BMI 22.3
--- NOTE | 2018-09-25 17:54 | PDOC ---
Rapid Medical Evaluation Chief Complaint: Injury Time Seen by Provider: 09/25/18 17:50 Medical Evaluation: Allergies Allergy/AdvReac Type Severity Reaction Status Date / Time No Known Allergies Allergy Verified 02/06/17 03:33 09/25/18 17:51 I have performed a brief in person evaluation of this patient. The patient presents with a CC of: left hand pain Pt is a 47 YO female who states that she fell today at 1500 onto her left hand and now has pain in this location. Pain 10/. Pt is right hand dominant. 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 PE: Skin: clear Lungs: Clear Heart: RRR MS: Focused on the left hand. Pt has pain on the third and fourth digits. No rotational deformity. She can make a fist, okay sign without difficulty. Pt has snuffbox tenderness. No deformity. Radial pulse present, cap refill less than 2 secs, sensation intact. Psych: Age appropriate. I have ordered the following: left hand and left wrist xray The patient will proceed to the [facility] for further evaluation. Discharge Disposition - Diagnosis Hand pain, left - Referrals - Patient Instructions - Post Discharge Activity
[2018-09-25] MEDS ORDERED: IBUPROFEN 600 MG TABLET (FP) PO ONE ×2 (19:40→20:06)
--- NOTE | 2018-09-25 20:07 | PDOC ---
History of Present Illness - General Chief Complaint: Injury Stated Complaint: LT HAND INJURY Time Seen by Provider: 09/25/18 17:50 History Source: Patient Exam Limitations: No Limitations Past History - Travel Traveled outside of the country in the last 30 days: No Close contact w/someone who was outside of country & ill: No - Past Medical History Allergies/Adverse Reactions: Allergies Allergy/AdvReac Type Severity Reaction Status Date / Time No Known Allergies Allergy Verified 02/06/17 03:33 Home Medications: Ambulatory Orders Ibuprofen 800 mg PO TID #30 tablet 09/25/18 Oxycodone HCl PRN 09/25/18 Valium PRN 09/25/18 Anemia: No Asthma: No Cancer: No Cardiac Disorders: No CVA: No COPD: Yes CHF: No Dementia: No Diabetes: No GI Disorders: (Gastritis) Disorders: No HTN: No Hypercholesterolemia: No Kidney Stones: No Liver Disease: No Psychiatric Problems: Yes Seizures: No Thyroid Disease: No - Surgical History Neurologic Surgery: Yes (spine) Orthopedic Surgery: Yes (spinal fusion ) - Immunization History Immunization Up to Date: Yes - Suicide/Smoking/Psychosocial Hx Smoking History: Current every day smoker Have you smoked in the past 12 months: Yes Number of Cigarettes Smoked Daily: 2 Information on smoking cessation initiated: No Hx Alcohol Use: No Drug/Substance Use Hx: No Substance Use Type: None Review of Systems - Review of Systems Able to Perform ROS?: Yes Comments:: 09/25/18 20:06 CONSTITUTIONAL: Absent: fever, chills, diaphoresis, generalized weakness, malaise, loss of appetite HEENT: Absent: rhinorrhea, nasal congestion, throat pain, throat swelling, difficulty swallowing, mouth swelling, ear pain, eye pain, visual Changes CARDIOVASCULAR: Absent: chest pain, loss of consciousness, palpitations, irregular heart rate, peripheral edema RESPIRATORY: Absent: cough, shortness of breath, dyspnea with exertion, orthopnea, wheezing, stridor, hemoptysis GASTROINTESTINAL: Absent: abdominal pain, abdominal distension, nausea, vomiting, diarrhea, constipation, melena, hematochezia GENITOURINARY: Absent: dysuria, frequency, urgency, hesitancy, hematuria, flank pain, genital pain MUSCULOSKELETAL: Absent: myalgia, arthralgia, joint swelling SKIN: Absent: rash, itching, pallor HEMATOLOGIC/IMMUNOLOGIC: Absent: easy bleeding, easy bruising, lymphadenopathy, frequent infections ENDOCRINE: Absent: unexplained weight gain, unexplained weight loss, heat intolerance, cold intolerance NEUROLOGIC: Absent: headache, focal weakness or paresthesias, dizziness, unsteady gait, seizure, mental status changes, bladder or bowel incontinence PSYCHIATRIC: Absent: anxiety, depression, suicidal or homicidal ideation, hallucinations. Is the patient limited Guyanese proficient: No *Physical Exam - Vital Signs Last Vital Signs Temp Pulse Resp BP Pulse Ox 98.6 F 80 17 108/66 100 09/25/18 17:52 09/25/18 17:52 09/25/18 17:52 09/25/18 17:52 09/25/18 17:52 - Physical Exam Comments: 09/25/18 20:06 GENERAL: Well developed, well nourished. Awake and alert. No acute distress. HEENT: Normocephalic, atraumatic. PERRLA, EOMI. No conjunctival pallor. Sclera are non- icteric. Moist mucous membranes. Oropharynx is clear. NECK: Supple. Full ROM. No JVD. Carotid pulses 2+ and symmetric, without bruits. No thyromegaly. No lymphadenopathy. CARDIOVASCULAR: Regular rate and rhythm. No murmurs, rubs, or gallops. Distal pulses are 2+ and symmetric. PULMONARY: No evidence of respiratory distress. Lungs clear to auscultation bilaterally. No wheezing, rales or rhonchi. ABDOMINAL: Soft. Non-tender. Non-distended. No rebound or guarding. No organomegaly. Normoactive bowel sounds. MUSCULOSKELETAL Normal range of motion at all joints. No bony deformities or tenderness. No CVA tenderness. EXTREMITIES: No cyanosis. No clubbing. No edema. No calf tenderness. SKIN: Warm and dry. Normal capillary refill. No rashes. No jaundice. NEUROLOGICAL: Alert, awake, appropriate. Cranial nerves 2-12 intact. No deficits to light touch and temperature in face, upper extremities and lower extremities. No motor deficits in the in face, upper extremities and lower extremities. Normoreflexic in the upper and lower extremities. Normal speech. Toes are down- going bilaterally. Gait is normal without ataxia. PSYCHIATRIC: Cooperative. Good eye contact. Appropriate mood and affect. Procedures - Splinting Splint Location: Left: Finger (4th finger), Wrist Pre-Proc Neuro Vasc Exam: normal Pre-Made Type: metal (finger) Hand-Made Type: orthoglass (wri) *DC/Admit/Observation/Transfer Diagnosis at time of Disposition: Wrist pain, left Metacarpal bone fracture Qualifiers: Encounter type: initial encounter Metacarpal bone: fourth Fracture type: closed Metacarpal location: base Fracture alignment: nondisplaced Laterality: left Qualified Code(s): S62.345A - Nondisplaced fracture of base of fourth metacarpal bone, left hand, initial encounter for closed fracture - Discharge Dispostion Disposition: HOME Condition at time of disposition: Stable Decision to Admit order: No - Referrals Referrals: Cam Wolf MD [Primary Care Provider] - Jonathan Thompson MD [Staff Physician] - - Patient Instructions Printed Discharge Instructions: DI for Finger Fracture, DI for Wrist Pain Additional Instructions: Your x-ray shows a broken bone to the tip clear fourth finger. Your also placed in a splint for your wrist pain as we cannot rule out a scaphoid fracture at this time. Please keep the wrist splint on until you're able to see orthopedics. You may take Motrin 800 mg every 8 hours as needed for pain Please continue to use her home dose of Percocet for breakthrough pain. Follow-up with orthopedics this week. Referral has been provided. Return to emergency for any worsening pain, numbness and tingling extremity, or if you've any changes in your symptoms. - Post Discharge Activity Forms/Work/School Notes: Back to Work
== END 2018-09-25 20:32 | disposition home or self-care (01) ==
LOC: JERFT 17:29
PROC: 2W3DX1Z Immobilization of Left Lower Arm using Splint (ICD-10-PCS; principal; 2018-09-25)
PROC: 2W3KX1Z Immobilization of Left Finger using Splint (ICD-10-PCS; 2018-09-25)
DX: S62.345A Nondisplaced fracture of base of fourth metacarpal bone, left hand, initial encounter for closed fracture (principal); W10.8XXA Fall (on) (from) other stairs and steps, initial encounter; Y93.89 Activity, other specified; Y92.89 Other specified places as the place of occurrence of the external cause; Y99.8 Other external cause status
CPT/HCPCS: 73110-TC-LR-FY; 73130-TC-LR-FY; 99281-25

== ENCOUNTER 2018-10-30 12:12 | Emergency (ER) | payer OTHER ==
[2018-10-30 12:25] VITALS: BP 109/57; PULSE 66; TEMP 98.3; BMI 22.2
[2018-10-30] MEDS ORDERED: DEXAMETHASONE SOD PHOSPHATE 10 MG/1 ML VIAL IM ONE (13:30)
--- NOTE | 2018-10-30 13:30 | PDOC ---
History of Present Illness - General Chief Complaint: Pain Stated Complaint: PAIN Time Seen by Provider: 10/30/18 12:40 History Source: Patient Exam Limitations: No Limitations - History of Present Illness Initial Comments: 10/30/18 13:24 HISTORY OF PRESENT ILLNESS: 47-year-old woman with past medical history of cervical spinal fusion and constipation of presents emergency Department with painful hemorrhoids for the past 4 days. Patient has been attempting over-the- counter treatments such as hydrocortisone/lidocaine, witch yannick and sitz baths with minimal relief of symptoms. Patient reports increased pain she with bowel movements. She denies any bleeding. Patient reports having daily bowel movements reports that they are firm. No recent travel or sick contacts. PAST MEDICAL HISTORY: Denies past medical history SURGICAL HISTORY: C5-C6 spinal fusion ALLERGIES: No known drug allergies REVIEW OF SYSTEMS General/Constitutional: Denies fever or chills. Denies weakness, weight change. HEENT: Denies change in vision. Denies ear pain or discharge. Denies sore throat. Cardiovascular: Denies chest pain or shortness of breath. Respiratory: Denies cough, wheezing, or hemoptysis. Gastrointestinal: Denies nausea, vomiting, diarrhea or constipation. Denies rectal bleeding. Genitourinary: Denies dysuria, frequency, or change in urination. Perianal pain. Musculoskeletal: Denies joint or muscle swelling or pain. Denies neck or back pain. Skin and breasts: Denies rash or easy bruising. Neurologic: Denies headache, vertigo, loss of consciousness, or loss of sensation. Psychiatric: Denies depression or anxiety. Endocrine: Denies increased thirst. Denies abnormal weight change. Hematologic/Lymphatic: Denies anemia, easy bleeding, or history of blood clots. Allergic/Immunologic: Denies hives or skin allergy. Denies latex allergy. PHYSICAL EXAM General Appearance: Well-appearing, appropriately dressed. No apparent distress , no intoxication. Gastrointestinal/Abdominal: Normal bowel sounds. Abdomen soft, non-distended. No tenderness or rebound tenderness. No organomegaly, pulsatile mass, guarding, hernia, hepatomegaly, splenomegaly. Singular nonthrombosed external hemorrhoid present to the left perianal area Integumentary: Appropriate color, dry, warm. 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 Fully oriented, alert. Appropriate mood/affect. Motor strength 5/5. No appreciable EOM palsy, facial droop or sensory deficit. Past History - Past Medical History Allergies/Adverse Reactions: Allergies Allergy/AdvReac Type Severity Reaction Status Date / Time No Known Allergies Allergy Verified 10/30/18 12:20 Home Medications: Ambulatory Orders Valium 5 mg PO PRN PRN 09/25/18 Oxycodone HCl/Acetaminophen [Percocet 5-325 mg Tablet] 1 tab PO Q4H PRN Anemia: No Asthma: No Cancer: No Cardiac Disorders: No CVA: No COPD: Yes CHF: No Dementia: No Diabetes: No GI Disorders: (Gastritis) Disorders: No HTN: No Hypercholesterolemia: No Kidney Stones: No Liver Disease: No Psychiatric Problems: Yes Seizures: No Thyroid Disease: No - Surgical History GI Surgery: Yes (for hemorrhoids) Neurologic Surgery: Yes (spine) Orthopedic Surgery: Yes (spinal fusion ) - Immunization History Immunization Up to Date: Yes - Suicide/Smoking/Psychosocial Hx Smoking History: Current every day smoker Have you smoked in the past 12 months: Yes Number of Cigarettes Smoked Daily: 2 Information on smoking cessation initiated: No Hx Alcohol Use: No Drug/Substance Use Hx: No Substance Use Type: None *Physical Exam - Vital Signs Last Vital Signs Temp Pulse Resp BP Pulse Ox 98.3 F 66 18 109/57 L 99 10/30/18 12:23 10/30/18 12:23 10/30/18 12:23 10/30/18 12:23 10/30/18 12:23 Moderate Sedation - Procedure Monitoring Vital Signs: Procedure Monitoring Vital Signs Temperature 98.3 F 10/30/18 12:23 Pulse Rate 66 10/30/18 12:23 Respiratory Rate 18 10/30/18 12:23 Blood Pressure 109/57 L 10/30/18 12:23 O2 Sat by Pulse Oximetry (%) 99 10/30/18 12:23 Medical Decision Making - Medical Decision Making 10/30/18 13:24 A/P: 47-year-old woman who denies medical history with severe perirectal pain from hemorrhoids Large nonthrombosed external hemorrhoid present to the right perianal area No palpable abscess noted No internal hemorrhoids present Rectal exam reveals no internal abnormality I-STOP performed as below: Patient Name: Carole Aguilar Date: 1970 Address: [address] [place] [address] Sex: Female Rx Written Rx Dispensed Drug Quantity Days Supply Prescriber Name 09/19/2018 09/28/2018 diazepam 5 mg tablet 60 30 ModuguAbraham MD 09/19/2018 09/28/2018 oxycodone-acetaminophen 10-325 mg tablet 60 30 ModuguAbraham MD 08/22/2018 08/28/2018 oxycodone-acetaminophen 10-325 mg tablet 60 30 ModuguAbraham MD 07/25/2018 07/29/2018 diazepam 5 mg tablet 60 30 Modugu, Abraham Bauer MD 07/25/2018 07/29/2018 oxycodone-acetaminophen 10-325 mg tablet 60 30 ModuguAbraham MD 06/27/2018 06/27/2018 diazepam 5 mg tablet 60 30 Modugu, Abraham Bauer MD 06/27/2018 06/27/2018 oxycodone-acetaminophen 10-325 mg tablet 60 30 ModuguAbraham MD 05/27/2018 05/27/2018 oxycodone-acetaminophen 10-325 mg tablet 60 30 Modugu, Abraham Bauer MD 05/27/2018 05/27/2018 diazepam 5 mg tablet 60 30 ModuguAbraham MD Given patient's extensive narcotic use hemorrhoids a likely cause from opioid- induced constipation. I'll give the patient 10 mg of Decadron here instructed to continue taking over- the-counter hydrocortisone/lidocaine cream, sitz baths and witch yannick medicated pads. 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 Is been discussed with the patient treatments to help prevent constipation such as increased oral intake of fluids, increase fiber intake and increase activity levels. *DC/Admit/Observation/Transfer Diagnosis at time of Disposition: External hemorrhoids - Discharge Dispostion Disposition: HOME Condition at time of disposition: Stable Decision to Admit order: No - Referrals - Patient Instructions Printed Discharge Instructions: DI for Hemorrhoids Additional Instructions: Apply witch yannick pads to hemorrhoid as needed for pain relief. Apply a thin layer of hydrocortisone ointment to hemorrhoid to help decrease swelling and persistent pain. Drink plenty of fluids. Drink one glass of prune juice every day. Eat lots of leafy green vegetables, berries, fruits and whole grains. Return to emergency department for severe rectal bleeding, increased pain, or any other concerns. - Post Discharge Activity
[2018-10-30] MEDS ORDERED: DEXAMETHASONE SOD PHOSPHATE 10 MG/1 ML VIAL ONE (13:36)
== END 2018-10-30 13:40 | disposition home or self-care (01) ==
LOC: JERFT 12:12
PROC: 3E023GC Introduction of Other Therapeutic Substance into Muscle, Percutaneous Approach (ICD-10-PCS; principal; 2018-10-30)
DX: K64.9 Unspecified hemorrhoids (principal); F17.210 Nicotine dependence, cigarettes, uncomplicated; F99 Mental disorder, not otherwise specified; J44.9 Chronic obstructive pulmonary disease, unspecified
CPT/HCPCS: 99281-25; J1100

== ENCOUNTER 2018-12-02 10:51 | Emergency (ER) | payer OTHER ==
[2018-12-02 10:58] VITALS: BMI 22.1
--- NOTE | 2018-12-02 11:49 | PDOC ---
History of Present Illness <Kristyn Poe - Last Filed: 12/02/18 12:47> - General History Source: Patient - History of Present Illness Timing/Duration: reports: other <Danisha ChavezEloiseYolanda - Last Filed: 12/02/18 16:58> - General Chief Complaint: Revisit,Wound Recheck Stated Complaint: PAIN Time Seen by Provider: 12/02/18 11:28 Past History <Kristyn Poe - Last Filed: 12/02/18 12:47> - Past Medical History Anemia: No Asthma: No Cancer: No Cardiac Disorders: No CVA: No COPD: Yes CHF: No Dementia: No Diabetes: No GI Disorders: (Gastritis) Disorders: No HTN: No Hypercholesterolemia: No Kidney Stones: No Liver Disease: No Psychiatric Problems: Yes Seizures: No Thyroid Disease: No - Surgical History GI Surgery: Yes (for hemorrhoids) Neurologic Surgery: Yes (spine) Orthopedic Surgery: Yes (spinal fusion ) - Immunization History Immunization Up to Date: Yes - Suicide/Smoking/Psychosocial Hx Smoking History: Current every day smoker Have you smoked in the past 12 months: No Number of Cigarettes Smoked Daily: 2 Information on smoking cessation initiated: No Hx Alcohol Use: No Drug/Substance Use Hx: No Substance Use Type: None <Syriac,DanishaKasie - Last Filed: 12/02/18 16:58> - Past Medical History Allergies/Adverse Reactions: Allergies Allergy/AdvReac Type Severity Reaction Status Date / Time No Known Allergies Allergy Verified 10/30/18 12:20 Home Medications: Ambulatory Orders Valium 5 mg PO PRN PRN 09/25/18 Oxycodone HCl/Acetaminophen [Percocet 5-325 mg Tablet] 1 tab PO Q4H PRN Docusate Sodium [Colace -] 100 mg PO DAILY #20 capsule 12/02/18 HYDROmorphone [Dilaudid -] 2 mg PO Q6H #8 tablet MDD 4 doses 12/02/18 Review of Systems - Review of Systems Constitutional: No: Chills, Fever ABD/GI: Yes: Rectal Bleeding. No: Nausea, Vomiting, Abdominal cramping <Nikky Chavez - Last Filed: 12/02/18 16:58> *Physical Exam - Vital Signs Last Vital Signs Temp Pulse Resp BP Pulse Ox 98.3 F 80 18 102/79 100 12/02/18 10:54 12/02/18 10:54 12/02/18 10:54 12/02/18 10:54 12/02/18 10:54 <Kristyn Poe - Last Filed: 12/02/18 12:47> - Vital Signs Last Vital Signs Temp Pulse Resp BP Pulse Ox 98.3 F 80 18 102/79 100 12/02/18 10:54 12/02/18 10:54 12/02/18 10:54 12/02/18 10:54 12/02/18 10:54 - Physical Exam General Appearance: Yes: Appropriately Dressed, Severe Distress HEENT: positive: Normal Voice Neck: positive: Supple Respiratory/Chest: negative: Respiratory Distress Gastrointestinal/Abdominal: positive: Soft. negative: Tender Rectal Exam: positive: other (possible rectal fullness w/ sutures intact, no obvious erythema and no discharge) Extremity: positive: Normal Inspection Integumentary: positive: Dry, Warm Neurologic: positive: Fully Oriented, Alert, Normal Mood/Affect <Nikky Chavez - Last Filed: 12/02/18 16:58> Moderate Sedation - Procedure Monitoring Vital Signs: Procedure Monitoring Vital Signs Temperature 98.3 F 12/02/18 10:54 Pulse Rate 80 12/02/18 10:54 Respiratory Rate 18 12/02/18 10:54 Blood Pressure 102/79 12/02/18 10:54 O2 Sat by Pulse Oximetry (%) 100 12/02/18 10:54 <Kristyn Poe - Last Filed: 12/02/18 12:47> - Procedure Monitoring Vital Signs: Procedure Monitoring Vital Signs Temperature 98.3 F 12/02/18 10:54 Pulse Rate 80 12/02/18 10:54 Respiratory Rate 18 12/02/18 10:54 Blood Pressure 102/79 12/02/18 10:54 O2 Sat by Pulse Oximetry (%) 100 12/02/18 10:54 <Nikky Chavez - Last Filed: 12/02/18 16:58> ED Treatment Course - LABORATORY CBC & Chemistry Diagram: 12/02/18 12:10 12/02/18 12:10 - ADDITIONAL ORDERS Additional order review: Laboratory Results 12/02/18 12/02/18 12:10 12:10 Sodium 134 L Potassium 4.3 Chloride 104 Carbon Dioxide 27 Anion Gap 4 L BUN 9 Creatinine 0.8 Creat Clearance w eGFR > 60 Random Glucose 92 Calcium 9.1 Total Bilirubin 0.3 AST 15 ALT 19 Alkaline Phosphatase 98 Total Protein 7.8 Albumin 4.1 Serum , Qual Negative 12/02/18 12:10 RBC 4.45 MCV 92.6 MCHC 32.9 RDW 12.7 MPV 9.6 Neutrophils % 42.0 L Lymphocytes % 46.9 H D Monocytes % 9.1 Eosinophils % 1.4 Basophils % 0.6 - Medications Given in the ED: ED Medications Discontinued Medications Generic Name Dose Route Start Last Admin Trade Name Freq PRN Reason Stop Dose Admin Morphine Sulfate 4 mg 12/02/18 11:50 12/02/18 12:18 Morphine Injection - IVPUSH 12/02/18 11:51 4 mg ONCE ONE Administration <Kristyn Poe - Last Filed: 12/02/18 12:47> - LABORATORY CBC & Chemistry Diagram: 12/02/18 12:10 12/02/18 12:10 <Nikky Chavez - Last Filed: 12/02/18 16:58> Medical Decision Making - Medical Decision Making The patient was seen and evaluated in conjunction with midlevel provider under my direct supervision, ancillary studies were reviewed. I agree with the plan as outlined by LAVON Chavez. HPI workup and dispo as outlined. 12/02/18 12:47 <Kristyn Poe - Last Filed: 12/02/18 12:47> - Medical Decision Making 12/02/18 11:47 48 yo F, s/p hemorrhoidectomy and polyp removal over a month ago w/ Dr Duarte Cadena, here w/ persistent rectal pain. States she continues to have severe rectal pain and has very painful bowel movements, sometimes w/ BRBPR. No nausea, vomiting, fever or chills. States she went back to see her surgeon 2 weeks ago and was prescribed lidocaine which does not help. See exam Persistent rectal pain s/p hemorrhoidectomy, polyp removal ~1 month ago, currently using lidocaine with no relief Pt in severe distress, crying in ED and unable to sit w/ possible rectal fullness with sutures still intact -pain control -labs -CT -surgery c/s 12/02/18 14:54 CT w/ no acute rectal pathology. Labs wnl. Pain presently controlled w/ morphine. Will discuss dispo w/ Dr Duarte Cadena of surgery 12/02/18 16:[address] Duarte cadena who wants patient discharged with pain meds and states patient should follow-up with him tomorrow <Nikky Chavez - Last Filed: 12/02/18 16:58> *DC/Admit/Observation/Transfer <Kristyn Poe - Last Filed: 12/02/18 12:47> <Danisha ChavezEloiseYolanda - Last Filed: 12/02/18 16:58> Diagnosis at time of Disposition: Rectal pain - Discharge Dispostion Disposition: HOME Condition at time of disposition: Improved - Prescriptions Prescriptions: Docusate Sodium [Colace -] 100 mg PO DAILY #20 capsule HYDROmorphone [Dilaudid -] 2 mg PO Q6H #8 tablet MDD 4 doses - Referrals Referrals: Cam Wolf MD [Primary Care Provider] - - Patient Instructions Additional Instructions: Your labs and CAT scan were normal here. Take Dilaudid sparingly and only as needed for severe pain. Because this medication can make you constipated and because of your current condition, it is important that you take colace as directed for constipation and drink plenty of fluid and increase fiber in your diet. Immerse bottom in warm to hot water daily, which can help the inflammation. Please call Dr. Duarte Cadena tomorrow for further management - Post Discharge Activity Forms/Work/School Notes: Back to Work
[2018-12-02] MEDS ORDERED: morphine CARPU-JECT 4 MG/1 ML DISP.SYRIN IVPUSH ONE ×2 (11:50→14:57)
[2018-12-02] MEDS ORDERED: morphine SULFATE 4 MG/ML VIAL ONE ×2 (12:13→15:09)
[2018-12-02 12:29] LABS: BASO % 0.6 % (0-2.0); EOS % 1.4 % (0-4.5); HEMATOCRIT 41.2 % (32.4-45.2); HEMOGLOBIN 13.6 GM/dL (10.7-15.3); LYMPH % 46.9 % (8-40); MCH 30.5 pg (25.7-33.7); MCHC 32.9 g/dl (32.0-36.0); MEAN CELL VOLUME 92.6 fl (80-96); MEAN PLT VOLUME 9.6 fl (7.5-11.1); MONO % 9.1 % (3.8-10.2); PLATELET COUNT 279 K/MM3 (134-434); RBC 4.45 M/mm3 (3.60-5.2); RDW 12.7 % (11.6-15.6); WHITE BLOOD COUNT 7.6 K/mm3 (4.0-10.0)
[2018-12-02 12:45] LABS: ALBUMIN 4.1 g/dl (3.4-5.0); ALK PHOS 98 U/L (45-117); ANION GAP 4 MMOL/L (8-16); BILIRUBIN,TOTAL 0.3 mg/dL (0.2-1); BLOOD UREA NITROGEN 9 mg/dL (7-18); CALCIUM 9.1 mg/dL (8.5-10.1); CHLORIDE 104 mmol/L (98-107); CO2 27 mmol/L (21-32); CREATININE 0.8 mg/dL (0.55-1.3); GLUCOSE,RANDOM 92 mg/dL (74-106); POTASSIUM 4.3 mmol/L (3.5-5.1); SGOT/AST 15 U/L (15-37); SGPT/ALT 19 U/L (13-61); SODIUM 134 mmol/L (136-145); TOT PROT 7.8 g/dl (6.4-8.2)
[2018-12-02 15:09] LABS: INR 1.04 (0.83-1.09); PROTHROMBIN TIME (PATIENT) 12.3 SEC (9.7-13.0)
[2018-12-02 16:55] VITALS: BP 108/75; PULSE 82; TEMP 98.1
== END 2018-12-02 17:05 | disposition home or self-care (01) ==
LOC: JER 10:51
PROC: 3E033NZ Introduction of Analgesics, Hypnotics, Sedatives into Peripheral Vein, Percutaneous Approach (ICD-10-PCS; principal; 2018-12-02)
DX: K62.89 Other specified diseases of anus and rectum (principal); K64.9 Unspecified hemorrhoids; Z98.890 Other specified postprocedural states
CPT/HCPCS: 36415; 74177-TC; 80053; 84703; 85025; 85610; 99282-25

== ENCOUNTER 2019-08-19 11:41 | Emergency (ER) | payer OTHER ==
[2019-08-19 11:53] VITALS: BP 101/72; PULSE 65; TEMP 98; BMI 21.9
[2019-08-19] MEDS ORDERED: ONDANSETRON 4 MG TABLET PO ONE (12:26)
[2019-08-19] MEDS ORDERED: RANITIDINE HCL 150 MG TABLET (FP) PO ONE (12:26)
[2019-08-19] MEDS ORDERED: MAG HYDROX/AL HYDROX/SIMETH -MYLANTA- ORAL SUSPENSION PO ONE (12:27)
[2019-08-19] MEDS ORDERED: MAG HYDROX/AL HYDROX/SIMETH 30 ML UNIT-DOSE CUP ONE (13:21)
[2019-08-19] MEDS ORDERED: ONDANSETRON *ODT* 4 MG TABLET ONE (13:21)
[2019-08-19] MEDS ORDERED: traMADol HCL 50 MG TABLET PO ONE (13:28)
[2019-08-19] MEDS ORDERED: traMADol HCL 50 MG TABLET ONE (13:34)
--- NOTE | 2019-08-19 13:38 | PDOC ---
History of Present Illness - General Chief Complaint: Pain, Acute Stated Complaint: ABD. PAIN Time Seen by Provider: 08/19/19 12:24 History Source: Patient - History of Present Illness Timing/Duration: reports: constant Abdominal Pain Onset Location: reports: epigastric Past History - Past Medical History Allergies/Adverse Reactions: Allergies Allergy/AdvReac Type Severity Reaction Status Date / Time No Known Allergies Allergy Verified 08/19/19 11:53 Home Medications: Ambulatory Orders Valium 5 mg PO PRN PRN 09/25/18 Oxycodone HCl/Acetaminophen [Percocet 5-325 mg Tablet] 1 tab PO Q4H PRN Docusate Sodium [Colace -] 100 mg PO DAILY #20 capsule 12/02/18 HYDROmorphone [Dilaudid -] 2 mg PO Q6H #8 tablet MDD 4 doses 12/02/18 Omeprazole 20 mg PO DAILY #30 tablet. 08/19/19 Omeprazole 20 mg PO DAILY #30 tablet. 08/19/19 Anemia: No Asthma: No Cancer: No Cardiac Disorders: No CVA: No COPD: Yes CHF: No Dementia: No Diabetes: No GI Disorders: (Gastritis) Disorders: No HTN: No Hypercholesterolemia: No Kidney Stones: No Liver Disease: No Psychiatric Problems: Yes Seizures: No Thyroid Disease: No Other medical history: DISC DEGENERATIVE DISEASE - Surgical History GI Surgery: Yes (for hemorrhoids) Neurologic Surgery: Yes (spine) Orthopedic Surgery: Yes (spinal fusion ) - Immunization History Immunization Up to Date: Yes - Psycho Social/Smoking Cessation Hx Smoking History: Never smoked Have you smoked in the past 12 months: No Number of Cigarettes Smoked Daily: 2 Hx Alcohol Use: No Drug/Substance Use Hx: No Substance Use Type: None Review of Systems - Review of Systems Constitutional: No: Chills, Fever Respiratory: No: Shortness of Breath Cardiac (ROS): No: Chest Pain ABD/GI: Yes: Nausea. No: Blood Streaked Bowels, Constipated, Diarrhea, Rectal Bleeding, Vomiting : No: Burning, Dysuria, Flank Pain *Physical Exam - Vital Signs Last Vital Signs Temp Pulse Resp BP Pulse Ox 98.0 F 65 16 101/72 96 08/19/19 11:50 08/19/19 11:50 08/19/19 11:50 08/19/19 11:50 08/19/19 11:50 - Physical Exam Comments: 08/19/19 13:43 excessively belching in ER General Appearance: Yes: Appropriately Dressed, Moderate Distress HEENT: positive: Normal Voice Neck: positive: Supple Respiratory/Chest: positive: Lungs Clear, Normal Breath Sounds. negative: Respiratory Distress Cardiovascular: positive: Regular Rate, S1, S2 Gastrointestinal/Abdominal: positive: Normal Bowel Sounds, Tender (sig ttp to epigastrium, no ttp to RUQ), Soft. negative: Distended, Guarding, Rebound Musculoskeletal: negative: CVA Tenderness Integumentary: positive: Dry, Warm Neurologic: positive: Fully Oriented, Alert, Normal Mood/Affect Medical Decision Making - Medical Decision Making Medical Decision Makin:20pm 48-year-old female, endorses history of gastritis, s/p EGD 1 yr ago w/ no remarkable findings per pt, was on omeprazole in past, f/u with Dr Hall of GI , here w/ epigastric pain x 2 days, worse after po intake and a/w nausea and excessive belching, similar to her gastritis per patient. Has been taking Pepcid with no relief. No change in bowel movements, melena, bright red blood per rectum, fever, chills, chest pain or shortness of breath. Patient states she was on omeprazole in the past, but that symptoms resolved so took herself off medications. No excessive alcohol or NSAID use see exam Gastritis flare "Normal" EGD 1 yr ago per pt (not on records here) No gallstones on US in 2018 Stable w/ ttp to epigastrium only -GI cocktail>reassess 2:07pm Pt reports feeling sig better w/ meds. Declie zantac here. Able to hailey po and feels well going home on meds, to f/u w/ GI Discharge - Discharge Information Problems reviewed: Yes Clinical Impression/Diagnosis: Gastritis Qualifiers: Gastritis type: unspecified gastritis Chronicity: acute Gastritis bleeding: without bleeding Qualified Code(s): K29.00 - Acute gastritis without bleeding Condition: Improved Disposition: HOME - Additional Discharge Information Prescriptions: Omeprazole 20 mg PO DAILY #30 tablet. Omeprazole 20 mg PO DAILY #30 tablet. - Follow up/Referral - Patient Discharge Instructions Patient Printed Discharge Instructions: Gastritis Additional Instructions: Take medications as prescribed and follow up with Dr. Hall - Post Discharge Activity
== END 2019-08-19 14:30 | disposition home or self-care (01) ==
LOC: JER 11:41
DX: K29.00 Acute gastritis without bleeding (principal); J44.9 Chronic obstructive pulmonary disease, unspecified; F99 Mental disorder, not otherwise specified; M51.36 Other intervertebral disc degeneration, lumbar region; K29.70 Gastritis, unspecified, without bleeding
CPT/HCPCS: 99282-25

== ENCOUNTER 2019-11-11 07:12 | Emergency (ER) | payer OTHER ==
[2019-11-11 07:29] VITALS: BMI 23.6
[2019-11-11] MEDS ORDERED: ACETAMINOPHEN 1000 MG/100 ML VIAL (NON FORMULARY) IVPB ONE (07:44)
[2019-11-11] MEDS ORDERED: FAMOTIDINE 20 MG/50 ML IVPB 20 MG/50 ML MG IVPB ONE ×2 (07:44→09:26)
[2019-11-11] MEDS ORDERED: MAG HYDROX/AL HYDROX/SIMETH 30 ML UNIT-DOSE CUP PO ONE (07:44)
[2019-11-11] MEDS ORDERED: ONDANSETRON 4 MG/2 ML VIAL IVPB ONE (07:44)
[2019-11-11] MEDS ORDERED: SODIUM CHLORIDE 1,000 ML IV STA (07:44)
--- NOTE | 2019-11-11 07:46 | PDOC ---
Documentation entered by Racquel Swartz SCRIBE, acting as scribe for Gabriele Weathers MD. Gabriele Weathers MD: This documentation has been prepared by the Sheridan robison Brenda, SCRIBE, under my direction and personally reviewed by me in its entirety. I confirm that the documentation accurately reflects all work, treatment, procedures, and medical decision making performed by me. History of Present Illness - General Chief Complaint: Pain Stated Complaint: ABD PAIN Time Seen by Provider: 11/11/19 07:34 History Source: Patient Exam Limitations: No Limitations - History of Present Illness Initial Comments: 11/11/19 07:43 The patient is a 48 year old female, with a significant PMH of gastritis and COPD who presents to the emergency department with abdominal pain. Pt states that since last night, she has been having cramp-like pain in her mid-upper abdomen. This is associated with nausea and vomiting. Pt denies diarrhea/ constipation. Denies flank pain. Denies F/C. States that she had similar pain a few months ago and was prescribed nexium, which helped. Pt took nexium last night with no relief. No prior abdominal surgeries. Allergies: NKA Past surgical history: GI (for hemorrhoids), spinal fusion Social history: Current everyday smoker PCP: Claudio Past History - Past Medical History Allergies/Adverse Reactions: Allergies Allergy/AdvReac Type Severity Reaction Status Date / Time No Known Allergies Allergy Verified 11/11/19 07:22 Home Medications: Ambulatory Orders Omeprazole 20 mg PO DAILY #30 tablet. 11/11/19 Anemia: No Asthma: No Cancer: No Cardiac Disorders: No CVA: No COPD: Yes CHF: No Dementia: No Diabetes: No GI Disorders: (Gastritis) Disorders: No HTN: No Hypercholesterolemia: No Kidney Stones: No Liver Disease: No Psychiatric Problems: Yes Seizures: No Thyroid Disease: No - Surgical History GI Surgery: Yes (for hemorrhoids) Neurologic Surgery: Yes (spine) Orthopedic Surgery: Yes (spinal fusion ) - Immunization History Immunization Up to Date: Yes - Psycho Social/Smoking Cessation Hx Smoking History: Never smoked Have you smoked in the past 12 months: No Number of Cigarettes Smoked Daily: 2 Information on smoking cessation initiated: No Hx Alcohol Use: No Drug/Substance Use Hx: No Substance Use Type: None Review of Systems - Review of Systems Able to Perform ROS?: Yes Comments:: 11/11/19 07:40 "GENERAL/CONSTITUTIONAL: No fever or chills. No weakness. HEAD, EYES, EARS, NOSE AND THROAT: No change in vision. No ear pain or discharge. No sore throat. CARDIOVASCULAR: No chest pain, no shortness of breath, no loss of consciousness RESPIRATORY: No cough, wheezing, or hemoptysis. GASTROINTESTINAL: + abdominal pain + nausea, vomiting, no diarrhea or constipation. GENITOURINARY: No dysuria, frequency, or change in urination. MUSCULOSKELETAL: No joint or muscle swelling or pain. No neck or back pain. SKIN: No rash NEUROLOGIC: No vertigo, no change in strength/sensation. ENDOCRINE: No increased thirst. No abnormal weight change. HEMATOLOGIC/LYMPHATIC: No anemia, easy bleeding, or history of blood clots. ALLERGIC/IMMUNOLOGIC: No hives or skin allergy." *Physical Exam - Vital Signs Last Vital Signs Temp Pulse Resp BP Pulse Ox 97.3 F L 66 118 H 118/55 L 100 11/11/19 07:21 11/11/19 07:21 11/11/19 07:21 11/11/19 07:21 11/11/19 07:21 - Physical Exam 11/11/19 07:40 GENERAL: Awake, alert, and fully oriented, in no acute distress. HEAD: No signs of trauma EYES: PERRLA, EOMI, sclera anicteric, conjunctiva clear ENT: Auricles normal inspection, hearing grossly normal, nares patent, oropharynx clear without exudates. Moist mucosa NECK: Nontender, no stepoffs, Normal ROM, supple, no lymphadenopathy, JVD, or masses LUNGS: Breath sounds equal, clear to auscultation bilaterally. No wheezes, and no crackles HEART: Regular rate and rhythm, normal S1 and S2, no murmurs, rubs or gallops ABDOMEN: + epigastric and RUQ TTP, normoactive bowel sounds. No guarding, no rebound. No masses EXTREMITIES: Normal range of motion, no edema. No clubbing or cyanosis. No cords, erythema, or tenderness NEUROLOGICAL: Cranial nerves II through XII intact. 5/5 strength and sensation in all extremities, Normal speech, normal gait, normal cerebellar function SKIN: Warm, Dry, normal turgor, no rashes or lesions noted. Heart Score/ECG Review - ECG Impressions Comment:: 11/11/19 08:11 NSR, no CHRISTOPHER/STDs, no TWIs, R axis deviation, inervals wnl, rate wnl ED Treatment Course - LABORATORY CBC & Chemistry Diagram: 11/11/19 08:00 11/11/19 08:00 Medical Decision Making - Medical Decision Making 11/11/19 07:48 48 F with epigastric and RUQ pain. Will evaluate for GB pathology. Possible gastritis/PUD. - Labs, lipase - RUQ sono - GI cocktail 11/11/19 09:11 Labs wnl UA with + blood, but pt states she is on her period 11/11/19 09:38 US unremarkable Pt reassessed - feels much better with GI meds Will DC with omeprazole refill Pt to f/u with her GI DrIda Hall Pt's vitals stable. RR 18 (incorrectly entered as 118 in triage) Pt is well appearing, with normal vitals. Clinically stable for DC at this time. I discussed the physical exam findings, ancillary test results and final diagnoses with the patient. I answered all of the patient's questions. The patient was satisfied with the care received and felt comfortable with the discharge plan and treatment plan. The patient agrees to follow up with the primary care physician within 24-72 hours. 11/11/19 09:58 As nurse went to discharge pt, she reported recurrence of her pain, stating it is midepigastric and 09/03 Will order more pain medication and obtain CT abdomen/pelvis 11/11/19 12:50 CT unremarkable Pt reassessed - pain improved once more Pt is well appearing, with normal vitals. Clinically stable for DC at this time. I discussed the physical exam findings, ancillary test results and final diagnoses with the patient. I answered all of the patient's questions. The patient was satisfied with the care received and felt comfortable with the discharge plan and treatment plan. The patient agrees to follow up with the primary care physician within 24-72 hours. Discharge - Discharge Information Problems reviewed: Yes Clinical Impression/Diagnosis: Gastritis, Abdominal pain, Nausea & vomiting Disposition: HOME - Additional Discharge Information Prescriptions: Omeprazole 20 mg PO DAILY #30 tablet.dr - Follow up/Referral Referrals: Duran Snyder MD [Primary Care Provider] - Lg Hall MD [Staff Physician] - - Patient Discharge Instructions Patient Printed Discharge Instructions: DI for Gastritis Additional Instructions: Your ultrasound today did not show any gallstones. However, we did incidentally find a lesion on your liver that is likely something called a "hemangioma". While this is most likely harmless, you should have it followed up by your primary doctor. You must follow up with a cloth hand for further evaluation of you abdominal pain. It may be due to stomach ulcers or a condition called gastritis. Take the omeprazole as prescribed. Call the number provided to make an appointment with Dr. Hall within 1 week. If you experience worsening pain, vomiting, fevers, or any other concerning symptoms, return to the ER immediately. No ER visit is complete without primary care follow up. Follow up with your primary doctor within 1 week to discuss your evaluation today. - Post Discharge Activity
[2019-11-11] MEDS ORDERED: ACETAMINOPHEN INJECTION 100 ML IVPB ONE (07:48)
[2019-11-11] MEDS ORDERED: ONDANSETRON 4 MG/2 ML VIAL ONE (07:49)
[2019-11-11] MEDS ORDERED: MAG HYDROX/AL HYDROX/SIMETH 30 ML UNIT-DOSE CUP ONE (07:49)
[2019-11-11 08:23] LABS: BASO % 0.6 % (0-2.0); EOS % 1.4 % (0-4.5); HEMOGLOBIN 13.1 GM/dL (10.7-15.3); LYMPH % 23.4 % (8-40); MCH 31.5 pg (25.7-33.7); MCHC 33.7 g/dl (32.0-36.0); MEAN CELL VOLUME 93.3 fl (80-96); MEAN PLT VOLUME 9.6 fl (7.5-11.1); MONO % 8.1 % (3.8-10.2); NEUT % 66.5 % (42.8-82.8); PLATELET COUNT 262 K/MM3 (134-434); RBC 4.18 M/mm3 (3.60-5.2); RDW 12.8 % (11.6-15.6); WHITE BLOOD COUNT 9.6 K/mm3 (4.0-10.0)
[2019-11-11 08:50] LABS: ALBUMIN 3.9 g/dl (3.4-5.0); BILIRUBIN,TOTAL 0.5 mg/dL (0.2-1); BLOOD UREA NITROGEN 6.9 mg/dL (7-18); CALCIUM 8.9 mg/dL (8.5-10.1); CREATININE 0.8 mg/dL (0.55-1.3); POTASSIUM 3.9 mmol/L (3.5-5.1); TOT PROT 7.2 g/dl (6.4-8.2)
[2019-11-11 09:33] LABS: EPI CELLS 1.2 /HPF (0-5/HPF); HYALINE CASTS 0 /lpf (0-8); URINE APPEARANCE CLEAR; URINE BACTERIA 18.7 /hpf (NEGATIVE); URINE BILIRUBIN NEGATIVE (NEGATIVE); URINE COLOR YELLOW; URINE GLUCOSE (UA) NEGATIVE (NEGATIVE); URINE KETONE NEGATIVE (NEGATIVE); URINE LEUK ESTERASE NEGATIVE (NEGATIVE); URINE NITRITE NEGATIVE (NEGATIVE); URINE PROTEIN NEGATIVE (NEGATIVE); URINE RBC 4 /hpf (0-4); URINE UROBILINOGEN 0.2 mg/dL (0.2-1.0); URINE WBC 0 /hpf (0-5)
[2019-11-11] MEDS ORDERED: KETOROLAC TROMETHAMINE 15 MG/ML VIAL ONE (09:58)
[2019-11-11] MEDS ORDERED: KETOROLAC TROMETHAMINE 15 MG/ML VIAL IVPUSH ONE (09:58)
[2019-11-11] MEDS ORDERED: morphine CARPU-JECT 4 MG/1 ML DISP.SYRIN IVPUSH ONE (11:32)
[2019-11-11] MEDS ORDERED: morphine SULFATE 4 MG/ML VIAL ONE (11:52)
[2019-11-11 12:33] VITALS: BP 100/66; PULSE 67; TEMP 97.6
--- NOTE | 2019-11-11 15:13 | EKG ---
Test Reason : Blood Pressure : / mmHG Vent. Rate : 059 BPM Atrial Rate : 059 BPM P-R Int : 142 ms QRS Dur : 090 ms QT Int : 402 ms P-R-T Axes : 078 093 056 degrees QTc Int : 397 ms SINUS BRADYCARDIA WITH SINUS ARRHYTHMIA RIGHTWARD AXIS BORDERLINE ECG WHEN COMPARED WITH ECG OF 06-FEB-2017 03:36, T WAVE INVERSION NO LONGER EVIDENT IN ANTERIOR LEADS Confirmed by CHUCKY LYNN, NAGI ([id number]) on 11/11/2019 3:13:34 PM Referred By: Confirmed By:NAGI LOCKE MD
== END 2019-11-11 13:03 | disposition home or self-care (01) ==
LOC: JER 07:12
PROC: 3E033GC Introduction of Other Therapeutic Substance into Peripheral Vein, Percutaneous Approach (ICD-10-PCS; principal; 2019-11-11)
PROC: 3E033NZ Introduction of Analgesics, Hypnotics, Sedatives into Peripheral Vein, Percutaneous Approach (ICD-10-PCS; 2019-11-11)
PROC: 3E0333Z Introduction of Anti-inflammatory into Peripheral Vein, Percutaneous Approach (ICD-10-PCS; 2019-11-11)
DX: K29.70 Gastritis, unspecified, without bleeding (principal); J44.9 Chronic obstructive pulmonary disease, unspecified; F17.210 Nicotine dependence, cigarettes, uncomplicated; Z98.1 Arthrodesis status
CPT/HCPCS: 36415; 74177-TC; 76705-TC; 80053; 81003; 82550; 83690; 84484; 84703; 85025; 93005; 93010; 99283-25; J0131; J7030; Q9967

== ENCOUNTER 2021-05-05 13:25 | Emergency (ER) | payer OTHER ==
[2021-05-05 13:31] VITALS: BP 128/70; PULSE 62; TEMP 98.6; BMI 22.3
[2021-05-05] MEDS ORDERED: KETOROLAC TROMETHAMINE 60 MG/2 ML VIAL IM ONE (14:56)
[2021-05-05] MEDS ORDERED: KETOROLAC TROMETHAMINE 30 MG/1 ML VIAL ONE (14:57)
== END 2021-05-05 16:07 | disposition home or self-care (01) ==
LOC: JERFT 13:25 → JER 13:25 → JERFT 16:07
PROC: 3E0233Z Introduction of Anti-inflammatory into Muscle, Percutaneous Approach (ICD-10-PCS; principal; 2021-05-05)
DX: M54.6 Pain in thoracic spine (principal)
CPT/HCPCS: 72050-TC-FY; 72070-TC-FY; 99284-25

== ENCOUNTER 2021-10-13 11:32 | Emergency (ER) | payer OTHER ==
[2021-10-13 11:40] VITALS: BP 116/65; PULSE 66; TEMP 98; BMI 23.6
[2021-10-13] MEDS ORDERED: KETOROLAC TROMETHAMINE 60 MG/2 ML VIAL IM ONE (12:32)
[2021-10-13] MEDS ORDERED: KETOROLAC TROMETHAMINE 60 MG/2 ML VIAL ONE (12:33)
== END 2021-10-13 14:33 | disposition home or self-care (01) ==
LOC: JERFT 11:32
PROC: 3E0233Z Introduction of Anti-inflammatory into Muscle, Percutaneous Approach (ICD-10-PCS; principal; 2021-10-13)
DX: M54.12 Radiculopathy, cervical region (principal)
CPT/HCPCS: 99283-25

== ENCOUNTER 2021-11-12 13:22 | Emergency (ER) | payer OTHER ==
[2021-11-12 13:53] VITALS: BP 137/79; PULSE 80; TEMP 98.2; BMI 22.3
== END 2021-11-12 15:35 | disposition home or self-care (01) ==
LOC: JER 13:22
DX: B34.9 Viral infection, unspecified (principal)
CPT/HCPCS: 99283-25; C9803; U0003; U0005

== ENCOUNTER 2021-11-24 18:47 | Emergency (ER) | payer OTHER ==
[2021-11-24 19:41] VITALS: BP 126/78; PULSE 78; TEMP 98; BMI 27.1
[2021-11-24] MEDS ORDERED: diazePAM 5 MG TABLET PO ONE (20:16)
[2021-11-24] MEDS ORDERED: hydrOXYzine PAMOATE 25 MG CAPSULE (FP) PO ONE ×2 (20:16→20:22)
[2021-11-24] MEDS ORDERED: diazePAM 5 MG TABLET ONE (20:22)
[2021-11-24] MEDS ORDERED: ONDANSETRON *ODT* 4 MG TABLET SL ONE (20:42)
[2021-11-24] MEDS ORDERED: ONDANSETRON *ODT* 4 MG TABLET ONE (20:46)
== END 2021-11-24 21:07 | disposition home or self-care (01) ==
LOC: JER 18:47
DX: J06.9 Acute upper respiratory infection, unspecified (principal); F41.9 Anxiety disorder, unspecified
CPT/HCPCS: 99283-25; Q0162

== ENCOUNTER 2022-05-05 13:05 | Emergency (ER) | payer OTHER ==
[2022-05-05 13:35] VITALS: BP 112/76; PULSE 66; TEMP 98.1; BMI 22.4
[2022-05-05] MEDS ORDERED: LIDOCAINE 5% TOPICAL PATCH TP ONE (13:49)
[2022-05-05] MEDS ORDERED: KETOROLAC TROMETHAMINE 15 MG/ML VIAL IVPUSH ONE (13:49)
[2022-05-05] MEDS ORDERED: LIDOCAINE 5% TOPICAL PATCH ONE (14:13)
[2022-05-05] MEDS ORDERED: KETOROLAC TROMETHAMINE 15 MG/ML VIAL ONE (14:13)
[2022-05-05 14:25] LABS: BASO % 0.6 % (0-2.0); EOS % 3.2 % (0-4.5); HEMATOCRIT 40.7 % (32.4-45.2); HEMOGLOBIN 13.9 GM/dL (10.7-15.3); LYMPH % 37.4 % (8-40); MCH 31.5 pg (25.7-33.7); MCHC 34.1 g/dl (32.0-36.0); MEAN CELL VOLUME 92.4 fl (80-96); MEAN PLT VOLUME 9.5 fl (7.5-11.1); MONO % 8.9 % (3.8-10.2); NEUT % 49.9 % (42.8-82.8); PLATELET COUNT 267 10^3/uL (134-434); WHITE BLOOD COUNT 8.4 K/mm3 (4.0-10.0)
[2022-05-05 14:50] LABS: BLOOD UREA NITROGEN 9.9 mg/dL (7-18)
[2022-05-05 14:51] LABS: ALBUMIN 4.5 g/dl (3.4-5.0); CALCIUM 9.5 mg/dL (8.5-10.1)
[2022-05-05 14:55] LABS: CREATININE 0.8 mg/dL (0.55-1.3)
[2022-05-05 14:57] LABS: BILIRUBIN,TOTAL 0.6 mg/dL (0.2-1); TOT PROT 7.7 g/dl (6.4-8.2)
[2022-05-05] MEDS ORDERED: LIDOCAINE PATCH REMOVAL MC SCH (22:00)
== END 2022-05-05 17:54 | disposition home or self-care (01) ==
LOC: JER 13:05
PROC: 3E0333Z Introduction of Anti-inflammatory into Peripheral Vein, Percutaneous Approach (ICD-10-PCS; principal; 2022-05-05)
DX: R07.9 Chest pain, unspecified (principal)
CPT/HCPCS: 36415; 71046-TC-FY; 80053; 84484; 85025; 85379; 93005; 93010; 99285-25

== ENCOUNTER 2022-05-24 13:27 | Emergency (ER) | payer OTHER ==
[2022-05-24 13:50] VITALS: BP 108/72; TEMP 98.8; BMI 22.6
[2022-05-24] MEDS ORDERED: morphine CARPU-JECT 4 MG/1 ML DISP.SYRIN IVPUSH ONE (16:48)
[2022-05-24] MEDS ORDERED: morphine SULFATE 4 MG/ML VIAL ONE (16:59)
[2022-05-24 18:21] LABS: BASO % 0.6 % (0-2.0); EOS % 1.6 % (0-4.5); HEMATOCRIT 39.3 % (32.4-45.2); HEMOGLOBIN 13.7 GM/dL (10.7-15.3); LYMPH % 36.7 % (8-40); MCH 32.1 pg (25.7-33.7); MCHC 34.9 g/dl (32.0-36.0); MEAN CELL VOLUME 91.9 fl (80-96); MEAN PLT VOLUME 9.7 fl (7.5-11.1); MONO % 7.8 % (3.8-10.2); NEUT % 53.3 % (42.8-82.8); PLATELET COUNT 255 10^3/uL (134-434); RBC 4.27 M/mm3 (3.60-5.2); WHITE BLOOD COUNT 8.6 K/mm3 (4.0-10.0)
[2022-05-24 18:53] LABS: BLOOD UREA NITROGEN 10.5 mg/dL (7-18); CALCIUM 8.9 mg/dL (8.5-10.1)
[2022-05-24 18:54] LABS: ALBUMIN 4.4 g/dl (3.4-5.0)
[2022-05-24 18:57] LABS: CREATININE 0.7 mg/dL (0.55-1.3)
[2022-05-24 18:58] LABS: BILIRUBIN,TOTAL 0.4 mg/dL (0.2-1); TOT PROT 7.5 g/dl (6.4-8.2)
[2022-05-24] MEDS ORDERED: diazePAM 5 MG TABLET PO ONE (19:34)
[2022-05-24] MEDS ORDERED: diazePAM 5 MG TABLET ONE (19:47)
[2022-05-24 21:52] VITALS: PULSE 78
== END 2022-05-24 21:54 | disposition home or self-care (01) ==
LOC: JERFT 13:27 → JER 13:27 → JERFT 21:54
PROC: 3E033NZ Introduction of Analgesics, Hypnotics, Sedatives into Peripheral Vein, Percutaneous Approach (ICD-10-PCS; principal; 2022-05-24)
DX: M54.50 Low back pain, unspecified (principal); M62.81 Muscle weakness (generalized)
CPT/HCPCS: 36415; 70450-TC; 72141-TC; 72146-TC; 72148-TC; 80053; 85025; 99285-25

== ENCOUNTER 2022-11-06 10:07 | Emergency (ER) | payer OTHER ==
[2022-11-06 10:13] VITALS: BP 116/70; PULSE 70; RESP 18; TEMP 97.8; BMI 22.6
[2022-11-06] MEDS ORDERED: traMADol HCL 50 MG TABLET PO ONE (13:28)
[2022-11-06] MEDS ORDERED: KETOROLAC TROMETHAMINE 30 MG/1 ML VIAL IM ONE (13:29)
[2022-11-06] MEDS ORDERED: KETOROLAC TROMETHAMINE 30 MG/1 ML VIAL ONE (13:36)
[2022-11-06] MEDS ORDERED: traMADol HCL 50 MG TABLET ONE (13:36)
== END 2022-11-06 19:11 | disposition home or self-care (01) ==
LOC: JERFT 10:07
PROC: 3E023GC Introduction of Other Therapeutic Substance into Muscle, Percutaneous Approach (ICD-10-PCS; principal; 2022-11-06)
DX: M54.2 Cervicalgia (principal)
CPT/HCPCS: 72125-TC; 72128-TC; 99284-25

== ENCOUNTER 2023-03-18 18:59 | Emergency (ER) | payer OTHER ==
[2023-03-18 19:17] VITALS: PULSE 80; TEMP 98.4; BMI 23.4
[2023-03-18] MEDS ORDERED: ACETAMINOPHEN 1000 MG/100 ML BAG IVPB ONE (20:43)
[2023-03-18] MEDS ORDERED: morphine CARPU-JECT 2 MG/1 ML DISP.SYRIN IVPUSH ONE (20:43)
[2023-03-18] MEDS ORDERED: LIDOCAINE 5% TOPICAL PATCH TP ONE (20:43)
[2023-03-18] MEDS ORDERED: LIDOCAINE 5% TOPICAL PATCH ONE (20:50)
[2023-03-18] MEDS ORDERED: ACETAMINOPHEN INJECTION 100 ML IVPB ONE (20:50)
[2023-03-18 21:59] LABS: BASO % 0.7 % (0-2.0); EOS % 0.7 % (0-4.5); HEMATOCRIT 37.5 % (32.4-45.2); HEMOGLOBIN 13.1 GM/dL (10.7-15.3); MCH 31.9 pg (25.7-33.7); MEAN CELL VOLUME 91.2 fl (80-96); MEAN PLT VOLUME 10.2 fl (7.5-11.1); MONO % 7.2 % (3.8-10.2); NEUT % 55.4 % (42.8-82.8); PLATELET COUNT 290 10^3/uL (134-434); RBC 4.11 M/mm3 (3.60-5.2); RDW 13.1 % (11.6-15.6); WHITE BLOOD COUNT 8.7 K/mm3 (4.0-10.0)
[2023-03-18] MEDS ORDERED: LIDOCAINE PATCH REMOVAL MC SCH (22:00)
[2023-03-18 22:03] LABS: ALBUMIN 3.9 g/dl (3.4-5.0); CALCIUM 8.9 mg/dL (8.5-10.1)
[2023-03-18 22:04] LABS: BLOOD UREA NITROGEN 5.9 mg/dL (7-18)
[2023-03-18 22:06] LABS: CREATININE 0.7 mg/dL (0.55-1.3)
[2023-03-18 22:08] LABS: BILIRUBIN,TOTAL 0.4 mg/dL (0.2-1); TOT PROT 7.6 g/dl (6.4-8.2)
[2023-03-18 22:56] VITALS: BP 130/76; RESP 18
== END 2023-03-18 22:55 | disposition home or self-care (01) ==
LOC: JER 18:59
PROC: 3E033NZ Introduction of Analgesics, Hypnotics, Sedatives into Peripheral Vein, Percutaneous Approach (ICD-10-PCS; principal; 2023-03-18)
PROC: 3E033GC Introduction of Other Therapeutic Substance into Peripheral Vein, Percutaneous Approach (ICD-10-PCS; 2023-03-18)
DX: M79.602 Pain in left arm (principal); R20.2 Paresthesia of skin; M54.2 Cervicalgia; G89.18 Other acute postprocedural pain
CPT/HCPCS: 36415; 72125-TC; 72128-TC; 80053; 84703; 85025; 93005; 93010; 99285-25

== ENCOUNTER 2024-03-03 22:46 | Emergency (ER) | payer OTHER ==
[2024-03-03 23:07] VITALS: BP 109/72; PULSE 71; RESP 20; TEMP 98.2; BMI 22.3
[2024-03-04] MEDS ORDERED: diphenhydrAMINE HCL 25 MG CAPSULE (FP) PO ONE (00:44)
[2024-03-04] MEDS ORDERED: DEXAMETHASONE 4 MG TABLET (FP) ONE (00:44)
[2024-03-04] MEDS: diphenhydrAMINE HCL 25 MG CAPSULE (FP) PO ONE (00:51)
[2024-03-04] MEDS: DEXAMETHASONE 4 MG TABLET (FP) PO ONE (00:51)
== END 2024-03-04 01:27 | disposition home or self-care (01) ==
LOC: JER 22:46
DX: T78.40XA Allergy, unspecified, initial encounter (principal); L50.0 Allergic urticaria; L29.9 Pruritus, unspecified
CPT/HCPCS: 99283-25

== ENCOUNTER 2024-03-11 09:39 | Emergency (ER) | payer OTHER ==
[2024-03-11 09:44] VITALS: BP 112/52; PULSE 79; RESP 18; TEMP 98; BMI 21.9
== END 2024-03-11 10:50 | disposition home or self-care (01) ==
LOC: JERFT 09:39
DX: L08.9 Local infection of the skin and subcutaneous tissue, unspecified (principal); R10.31 Right lower quadrant pain; R10.32 Left lower quadrant pain
CPT/HCPCS: 99283-25

== ENCOUNTER 2024-05-08 11:03 | Emergency (ER) | payer OTHER ==
[2024-05-08 11:19] VITALS: BP 120/67; PULSE 63; RESP 18; TEMP 98.4; BMI 20.9
[2024-05-08] MEDS ORDERED: KETOROLAC TROMETHAMINE 30 MG/1 ML VIAL ONE (12:07)
[2024-05-08] MEDS ORDERED: ACETAMINOPHEN INJECTION 100 ML IVPB ONE (12:07)
[2024-05-08] MEDS ORDERED: LIDOCAINE 4% PATCH TP ONE (12:07)
[2024-05-08] MEDS: LIDOCAINE 5% TOPICAL PATCH TP ONE (12:18)
[2024-05-08] MEDS: ACETAMINOPHEN 1000 MG/100 ML BAG IVPB ONE (12:18)
[2024-05-08] MEDS: KETOROLAC TROMETHAMINE 30 MG/1 ML VIAL IVPUSH ONE (12:18)
[2024-05-08] MEDS ORDERED: morphine SULFATE 4 MG/ML VIAL ONE (12:20)
[2024-05-08] MEDS: morphine CARPU-JECT 4 MG/1 ML DISP.SYRIN IVPUSH ONE (12:25)
[2024-05-08] MEDS ORDERED: LIDOCAINE PATCH REMOVAL MC ONE (22:00)
== END 2024-05-08 13:54 | disposition home or self-care (01) ==
LOC: JERFT 11:03
PROC: 3E033NZ Introduction of Analgesics, Hypnotics, Sedatives into Peripheral Vein, Percutaneous Approach (ICD-10-PCS; principal; 2024-05-08)
PROC: 3E0333Z Introduction of Anti-inflammatory into Peripheral Vein, Percutaneous Approach (ICD-10-PCS; 2024-05-08)
PROC: 3E033NZ Introduction of Analgesics, Hypnotics, Sedatives into Peripheral Vein, Percutaneous Approach (ICD-10-PCS; 2024-05-08)
DX: M54.16 Radiculopathy, lumbar region (principal); M54.50 Low back pain, unspecified; G89.29 Other chronic pain; M54.6 Pain in thoracic spine
CPT/HCPCS: 99284-25; J0131

== ENCOUNTER 2024-09-27 00:19 | Emergency (ER) | payer OTHER ==
[2024-09-27 00:31] VITALS: BP 98/69; PULSE 81; RESP 18; TEMP 98.2; BMI 22.4
[2024-09-27] MEDS ORDERED: KETOROLAC TROMETHAMINE 30 MG/1 ML VIAL ONE (00:43)
[2024-09-27] MEDS: KETOROLAC TROMETHAMINE 30 MG/1 ML VIAL IM ONE (00:56)
== END 2024-09-27 02:18 | disposition home or self-care (01) ==
LOC: JER 00:19
PROC: 3E0233Z Introduction of Anti-inflammatory into Muscle, Percutaneous Approach (ICD-10-PCS; principal; 2024-09-27)
DX: S93.492A Sprain of other ligament of left ankle, initial encounter (principal); M25.572 Pain in left ankle and joints of left foot; W10.9XXA Fall (on) (from) unspecified stairs and steps, initial encounter
CPT/HCPCS: 73610-TC-LT-FY; 73630-TC-LT; 99284-25

== ENCOUNTER 2024-12-13 12:02 | Emergency (ER) | payer OTHER ==
[2024-12-13 12:13] VITALS: BP 134/81; TEMP 97.7; BMI 22.3
[2024-12-13] MEDS ORDERED: LORazepam 2 MG/ML SDV VIAL ONE (13:39)
[2024-12-13] MEDS: LORazepam 2 MG/ML SDV VIAL IM ONE (13:43)
[2024-12-13 13:47] VITALS: PULSE 66; RESP 26
[2024-12-13 14:02] LABS: BASO % 0.8 % (0-2.0); EOS % 1.9 % (0-4.5); HEMATOCRIT 40.5 % (32.4-45.2); LYMPH % 37.3 % (8-40); MCH 31.6 pg (25.7-33.7); MCHC 34.5 g/dl (32.0-36.0); MEAN CELL VOLUME 91.5 fl (80-96); MEAN PLT VOLUME 9.4 fl (7.5-11.1); MONO % 8.3 % (3.8-10.2); NEUT % 51.7 % (42.8-82.8); PLATELET COUNT 250 10^3/uL (134-434); RBC 4.43 M/mm3 (3.60-5.2); RDW 12.6 % (11.6-15.6); WHITE BLOOD COUNT 7.1 K/mm3 (4.0-10.0)
[2024-12-13 14:19] LABS: POTASSIUM 3.8 mmol/L (3.5-5.1)
[2024-12-13 14:21] LABS: ALBUMIN 4.2 g/dl (3.4-5.0); BLOOD UREA NITROGEN 10.1 mg/dL (7-18); CALCIUM 9.3 mg/dL (8.5-10.1)
[2024-12-13 14:25] LABS: CREATININE 0.7 mg/dL (0.55-1.3)
[2024-12-13 14:26] LABS: TOT PROT 7.4 g/dl (6.4-8.2)
== END 2024-12-13 15:54 | disposition home or self-care (01) ==
LOC: JER 12:02
PROC: 3E023GC Introduction of Other Therapeutic Substance into Muscle, Percutaneous Approach (ICD-10-PCS; principal; 2024-12-13)
DX: F41.0 Panic disorder [episodic paroxysmal anxiety] (principal)
CPT/HCPCS: 36415; 80053; 84443; 85025; 99284-25

== ENCOUNTER 2025-06-17 13:34 | Emergency (ER) | payer OTHER ==
[2025-06-17 13:51] VITALS: BP 98/69; PULSE 75; RESP 18; TEMP 97.9; BMI 23.2
[2025-06-17] MEDS ORDERED: ACETAMINOPHEN INJECTION 100 ML ONE (14:48)
[2025-06-17] MEDS ORDERED: HALOPERIDOL LACTATE 5 MG/ML ONE (14:48)
[2025-06-17] MEDS ORDERED: FAMOTIDINE 20 MG/50 ML IVPB 20 MG/50 ML MG IVPB ONE (14:48)
[2025-06-17] MEDS: ACETAMINOPHEN 1000 MG/100 ML BAG IVPB ONE (15:09)
[2025-06-17] MEDS: LACTATED RINGERS SOLUTION 1000 ML INFUS.BAG IV ONE (15:09)
[2025-06-17] MEDS: HALOPERIDOL LACTATE 5 MG/ML IM ONE (15:10)
[2025-06-17] MEDS: FAMOTIDINE 20 MG/50 ML IVPB 20 MG/50 ML MG IVPB ONE (15:10)
[2025-06-17] MEDS: ONDANSETRON 4 MG/2 ML VIAL IVPUSH ONE (15:11)
[2025-06-17 15:12] LABS: MCHC 34.9 g/dl (32.2-35.5); MEAN CELL VOLUME 89.9 fl (79.4-94.8); MEAN PLT VOLUME 11.3 fl (9.4-12.3); RDW 12.1 % (12.3-16.6)
[2025-06-17 15:29] LABS: CO2 28.0 mmol/L (21-32); GLUCOSE,RANDOM 89.0 mg/dL (74-106)
[2025-06-17 15:32] LABS: CREATININE 0.8 mg/dL (0.55-1.3); SGOT/AST 19.0 U/L (15-37); SGPT/ALT 25.0 U/L (13-61)
[2025-06-17 15:33] LABS: TOT PROT 7.5 g/dl (6.4-8.2)
[2025-06-17 15:34] LABS: ALK PHOS 86.0 U/L (45-117)
[2025-06-17 16:24] LABS: HCV DIAGNOSTIC IN-HOUSE W/RFLX NON-REACTIVE (NONREACTIVE)
[2025-06-17 16:26] LABS: HIV INTERPRETATION NEGATIVE (NEGATIVE)
[2025-06-17] MEDS: LORazepam 2 MG/ML SDV VIAL IM ONE (16:35)
== END 2025-06-17 18:21 | disposition home or self-care (01) ==
LOC: JER 13:34
PROC: 3E033GC Introduction of Other Therapeutic Substance into Peripheral Vein, Percutaneous Approach (ICD-10-PCS; principal; 2025-06-17)
PROC: 3E033GC Introduction of Other Therapeutic Substance into Peripheral Vein, Percutaneous Approach (ICD-10-PCS; 2025-06-17)
PROC: 3E033NZ Introduction of Analgesics, Hypnotics, Sedatives into Peripheral Vein, Percutaneous Approach (ICD-10-PCS; 2025-06-17)
PROC: 3E023GC Introduction of Other Therapeutic Substance into Muscle, Percutaneous Approach (ICD-10-PCS; 2025-06-17)
DX: R10.13 Epigastric pain (principal); F41.9 Anxiety disorder, unspecified; R11.2 Nausea with vomiting, unspecified
CPT/HCPCS: 36415; 71045-TC-FY; 80053; 83690; 83735; 84703; 85025; 86803; 87389; 93005; 93010; 99285-25